=== PATIENT | female | born 1970 | race Hispanic/Latino ===

== ENCOUNTER 2018-08-14 23:32 | Inpatient (IN) | payer OTHER ==
[2018-08-15] MEDS ORDERED: ACETAMINOPHEN 500 MG TAB PO PRN (00:09)
[2018-08-15 04:53] LABS: Urine Appearance CLEAR; Urine Bilirubin NEGATIVE (NEG); Urine Blood NEGATIVE (NEG); Urine Color YELLOW; Urine Glucose TRACE (NEG); Urine Protein 3+ (NEG); Urine Urobilinogen 0.2 mg/dL (0.2-1.0); Urine pH 6.5 (5.0-7.0)
[2018-08-15 05:05] LABS: Urine Microscopic Reflex ORDER UMIC
[2018-08-15 05:13] LABS: Urine Bacteria <20 /HPF (<20); Urine Culture Reflex Order NOT NEEDED; Urine RBC <5 /HPF (NONE SEEN)
[2018-08-15 06:28] LABS: Absolute Lymphocytes (CBC) 1.1 K/uL (0.7-4.9); Absolute Monocytes 0.5 K/uL (0.1-1.3); Absolute Neutrophil 7.4 K/uL (1.8-8.0); Basophils % 0.8 % (0-1.3); Hematocrit 24.2 % (36.0-45.0); Lymphocytes % 11.7 % (15.3-44.8); MCV 81.4 fL (80-100); MPV 8.8 fL (7.6-11.3); Monocytes % 5.5 % (3.3-12.3); RBC Red Blood Cell Count 2.97 M/uL (3.86-4.86)
[2018-08-15 06:42] LABS: Albumin 1.3 g/dL (3.4-5.0); Bilirubin Total 0.2 mg/dL (0.2-1.0); Phosphorus 5.9 mg/dL (2.5-4.9); Potassium 3.2 mmol/L (3.5-5.1); Protein, Total 5.1 g/dL (6.4-8.2)
[2018-08-15 06:49] LABS: Protime INR 1.08
[2018-08-15] MEDS ORDERED: INFLUENZA VACCINE (for 3y+) 0.5 ML DOSE IMVAC ONE (07:00)
[2018-08-15] MEDS ORDERED: PNEUMOCOCCAL VACCINE 0.5 ML IMVAC ONE (07:00)
[2018-08-15] MEDS: KCL 20 MEQ/100 mL IVPB 20 MEQ/100 ML BAG IV SCH ×2 (07:28→09:40)
[2018-08-15] MEDS ORDERED: NA CHLORIDE 0.9% 250 ML ONE (07:36)
--- NOTE | 2018-08-15 08:51 | P.HP ---
Certification for Inpatient Patient admitted to: Inpatient With expected LOS: >2 Midnights Patient will require the following post-hospital care: None Practitioner: I am a practitioner with admitting privileges, knowledge of patient current condition, hospital course, and medical plan of care. Services: Services provided to patient in accordance with Admission requirements found in Title 42 Section 412.3 of the Code of Federal Regulations Patient History Date of Service: 08/14/18 Reason for admission: Acute renal failure History of Present Illness: Patient is a 48-year-old female who came into the hospital with a transfer from [place]. Patient is requiring hemodialysis access catheter. Patient needs dialysis as well. Patient will be admitted to the hospital for intervention. History was obtained from patient's daughter who was at her bedside. Patient has a history of diabetes and hypertension. Her renal function has been deteriorating. She has been fatigued and anorexic over the last month. She was admitted to the hospital because of her renal failure. She required intervention however [facility] did not have staff so she was transferred to our facility. Patient will be admitted to our hospital for further workup. Allergies No Known Allergies Allergy (Unverified 08/14/18 23:51) Home Medications: NK [No Home Meds] 08/14/18 - Past Medical/Surgical History Has patient received pneumonia vaccine in the past: No Diabetic: Yes -: Type 2 DM -: Anemia -: HTN -: Hyperlipidemia -: CS -: Tubal Ligation - Family History Sister Medical History: Diabetes, Kidney disease Brother Medical History: Diabetes - Social History Smoking Status: Never smoker Alcohol use: No CD- Drugs: No Caffeine use: Yes Place of Residence: Home Review of Systems 10-point ROS is otherwise unremarkable Physical Examination - Vital Signs Temperature: 97.1 F Blood Pressure: 169/77 Pulse: 86 Respirations: 18 Pulse Ox (%): 96 - Physical Exam General: Alert, In no apparent distress, Oriented x3 HEENT: Atraumatic, PERRLA, Mucous membr. moist/pink, EOMI, Sclerae nonicteric Neck: Supple, 2+ carotid pulse no bruit, No LAD, Without JVD or thyroid abnormality Respiratory: Clear to auscultation bilaterally, Normal air movement Cardiovascular: Regular rate/rhythm, Normal S1 S2, No murmurs Gastrointestinal: Normal bowel sounds, Soft and benign, Non-distended, No tenderness Musculoskeletal: No clubbing, No swelling, No tenderness Integumentary: No rashes Neurological: Normal gait, Normal speech, Normal strength at 5/5 x4 extr, Normal tone, Normal affect Lymphatics: No axilla or inguinal lymphadenopathy - Studies Laboratory Data (last 24 hrs) 08/15/18 05:40: Sodium 146 H, Potassium 3.2 L, BUN 35 H, Creatinine 4.20 H, Glucose 98, Phosphorus 5.9 H, Magnesium 2.0, Total Bilirubin 0.2, AST 10 L, ALT 12, Alkaline Phosphatase 95 08/15/18 05:40: PT 12.8 H, INR 1.08, APTT 33.2 08/15/18 05:40: WBC 9.5, Hgb 8.3 L, Hct 24.2 L, Plt Count 292 Assessment & Plan - Problems (Diagnosis) (1) End stage renal disease Current Visit: Yes Status: Acute (2) History of hypertension Current Visit: Yes Status: Acute (3) History of diabetes mellitus, type II Current Visit: Yes Status: Acute (4) Metabolic acidosis Current Visit: Yes Status: Acute (5) Hypocalcemia Current Visit: Yes Status: Acute - Plan Plan: 1. Surgical consultation 2. Nephrology consultation 3. Corrected calcium for hypoalbuminemia is 8.6 so do not need to give IV calcium at this time. We should check ionized calcium level. 4. Strict BP and BS control 5. Monitor labs and electrolytes closely 6. NPO after midnight 7. GI and DVT prophylaxis Discharge Plan: Home Plan to discharge in: Greater than 2 days - Advance Directives Does patient have a Living Will: No Does patient have a Durable POA for Healthcare: No - Code Status/Comfort Care Code Status Assessed: Yes Code Status: Full Code Critical Care: No Time Spent Managing PTS Care (In Minutes): 50
[2018-08-15] MEDS ORDERED: ENOXAPARIN 30 MG/0.3 ML SQ SCH (09:00)
[2018-08-15] MEDS ORDERED: NS 0.9% VIAL 20 ML ONE (10:48)
[2018-08-15] MEDS ORDERED: NA CHLORIDE 0.9% 500 ML ONE (11:02)
[2018-08-15] MEDS ORDERED: MIDAZOLAM HCL 2 MG/2 ML INJ ONE (11:33)
[2018-08-15] MEDS ORDERED: PROPOFOL 200 MG/20 ML VIAL IV ONE (11:33)
[2018-08-15] MEDS ORDERED: FENTANYL CITR 100 MCG/2 ML ONE (11:33)
[2018-08-15] MEDS ORDERED: LIDOCAINE 1% MPF 5 ML VIAL ONE (11:33)
[2018-08-15] MEDS: CEFAZOLIN/SWI 1gm 1 GM/10 ML SYR ONE ×2 (11:57→12:04)
[2018-08-15] MEDS: BUPIVACA 0.25%/EPI 0.0005% MDV 50 ML VIAL ONE ×2 (12:20→12:41)
[2018-08-15] MEDS: HEPARIN 5000 UNIT/ML 1 ML VIAL ONE ×2 (12:28→12:50)
[2018-08-15] MEDS ORDERED: EPHEDRINE SULF 50 MG/10 ML SYR ONE (12:35)
[2018-08-15] MEDS ORDERED: NS 0.9% VIAL 10 ML ONE (12:57)
--- NOTE | 2018-08-15 12:57 | P.OP ---
Associate Professor Of Communication: LUIZA ANN Preoperative diagnosis: End Stage Renal Disease Postoperative diagnosis: End Stage Renal Disease Primary procedure: Placement of LEFT internal jugular tunnelled hemodialysis catheter Secondary procedure: ultrasound and flouroscopic guidance used Anesthesia: GETA + Local Estimated blood loss: <10cc Specimen: None Findings: Dark, Non red non-pulsatile blood returned Complications: None Transferred to: Recovery Room Condition: Good
--- NOTE | 2018-08-15 13:42 | RAD REPORT ---
EXAM DESCRIPTION: RAD - Fluoroscopy <1 Hour - 08/15/2018 1:34 pm CLINICAL HISTORY: Venous catheter insertion. CATHETER PLACEMENT IN OR4 COMPARISON: No comparisons FINDINGS: Fluoroscopic imaging is submitted from placement of a venous catheter. Details of the pro cedure not available. Fluoroscopy time: 0.7 minutes.
--- NOTE | 2018-08-15 13:43 | RAD REPORT ---
EXAM DESCRIPTION: RAD - Chest Single View - 08/15/2018 1:30 pm CLINICAL HISTORY: CATHETER PLACEMENT Chest pain. COMPARISON: No comparisons FINDINGS: Portable technique limits examination quality. Mild linear atelectasis is present in the right lung base. The lungs are otherwise clear. Left-sided venous catheter has tip in the SVC. No postprocedure pneumothorax. Cardiac size is normal.
--- NOTE | 2018-08-15 15:22 | CON ---
Date of Consultation: 08/15/2018 Brief History Of Present Illness: The patient is a 48-year-old female, who presents to [facility] from [facility]. She went to [place] at that time with shortness of breath and cough an d was noted to have worsening renal function. She was therefore told that she would likely need to b e placed on dialysis and have initiation of dialysis as she has had continued dysfunction of her kidn eys to a point where she is requiring dialysis. As such, she was transferred to this facility from [place]. She states she feels much better now with no shortness of breath and no other symptoms at t his point, and her cough is improving significantly, and she has had no coughing in the past few hour s. Past Medical History: Hypertension, diabetes, anemia, hyperlipidemia. Past Surgical History: Includes , tubal ligation, bilateral breast abscess drainages. Allergies: NO KNOWN DRUG ALLERGIES. Medications: None as patient is noncompliant with medical therapy. Family History: She has a sister with diabetes and kidney disease as well and a brother with diabete s. Social History: She denies smoking, alcohol, or recreational drug use. Review of Systems: A 10-point review of systems other than HPI, denies. Physical Examination: Vital Signs: She has a BMI of 25.9, blood pressure 169/77, pulse 86, respiratory rate 18, temperatur e 97.1. General: She is awake, alert, oriented. Psychiatric: She is appropriate and conversive. HEENT: She is normocephalic. Sclerae anicteric. Mucous membranes are moist. Oropharynx clear. Sh e has very poor dentition. Neck: Supple. No JVD. Chest: Normal expansion and excursion. Cardiovascular: Regular rate and rhythm. Pulmonary: Clear to auscultation bilaterally. Abdomen: Soft. Extremities: She has edema in all 4 extremities, which is 1 to 2+ pitting edema. Laboratory Data: Reveals a white blood cell count of 9.5, hemoglobin 8.3, hematocrit 24.2, platelet count is 292, neutrophils are 78%. Her PT is 12.8, INR 1.08, PTT 33.2. Her sodium 146, potassium 3. 2, chloride 115, carbon dioxide 18, BUN 35, creatinine 4.2, glucose is 98, calcium 6.5, phosphorus 5. 9, magnesium 2.0, total bilirubin 0.2. AST is 10, ALT is 12, alkaline phosphatase is 95. UA is esse ntially negative except for 3+ protein. Assessment And Plan: This is a 48-year-old female, who comes in with signs and symptoms of acute on chronic renal failure. 1.IV fluid to be judiciously managed. 2.Electrolyte correction. 3.I explained risks, benefits, and alternatives of placement of a tunneled hemodialysis catheter inc luding, but not limited to bleeding, infection, damage to surrounding tissue, need for further operat ing procedures, injury to lung, pneumothorax, need for chest tube in cases of pneumothorax can be pos sible. The patient agrees to proceed as indicated. Thank you for this interesting consult. LARA/MORENA Voice ID: [id number] Report ID: [id number]
--- NOTE | 2018-08-15 15:46 | P.PN ---
Subjective Date of Service: 08/15/18 Chief Complaint: Acute renal failure Patient seen and examined at bedside with RN. Chart reviewed. Case discussed we Nephrology and general surgery. Patient scheduled for HD tunneled cath Review of Systems 10-point ROS is otherwise unremarkable Physical Examination - Vital Signs Temperature: 97.8 F Blood Pressure: 159/72 Pulse: 100 Respirations: 22 Pulse Ox (%): 93 - Physical Exam General: Alert, In no apparent distress HEENT: Atraumatic, PERRLA, EOMI Neck: Supple, JVD not distended Respiratory: Clear to auscultation bilaterally, Normal air movement Cardiovascular: Regular rate/rhythm, Normal S1 S2 Gastrointestinal: Normal bowel sounds, No tenderness Musculoskeletal: No tenderness Integumentary: No rashes Neurological: Normal speech, Normal tone, Normal affect Lymphatics: No axilla or inguinal lymphadenopathy - Studies Laboratory Data (last 24 hrs) 08/15/18 05:40: Sodium 146 H, Potassium 3.2 L, BUN 35 H, Creatinine 4.20 H, Glucose 98, Phosphorus 5.9 H, Magnesium 2.0, Total Bilirubin 0.2, AST 10 L, ALT 12, Alkaline Phosphatase 95 08/15/18 05:40: PT 12.8 H, INR 1.08, APTT 33.2 08/15/18 05:40: WBC 9.5, Hgb 8.3 L, Hct 24.2 L, Plt Count 292 Medications List Reviewed: Yes Assessment And Plan - Current Problems (Diagnosis) (1) End stage renal disease Onset Date: 08/15/18 Current Visit: Yes Status: Acute Plan: Acute renal failure on chronic kidney disease -patient recently transferred from another hospital over here to get a HD catheter placement -nephrology has been consulted. Will start dialysis once HD catheterization has been done -will follow up with nephrology for further recommendations after general surgery has done the procedure today (2) History of diabetes mellitus, type II Current Visit: Yes Status: Chronic Plan: Currently on insulin sliding scale will continue to monitor closely (3) History of hypertension Current Visit: Yes Status: Chronic Plan: Continue with home medication at this time Discharge Plan: Home Plan to discharge in: Greater than 2 days - Code Status/Comfort Care Code Status Assessed: Yes Critical Care: No
[2018-08-15] MEDS: ONDANSETRON 4 MG/2 ML VIAL IV PRN ×2 (16:18→22:17)
[2018-08-15] MEDS: HYDROMORPHONE HCL 1 MG/ML INJ IV PRN (16:18)
[2018-08-15] MEDS ORDERED: NA CHLORIDE 0.9% 1,000 ML IV PRN (17:36)
[2018-08-15] MEDS ORDERED: ALBUMIN HUMAN 25% 50 ML IV SCH (18:00)
[2018-08-15] MEDS: CALCITROL 0.25 MCG CAP PO SCH (22:17)
[2018-08-15] MEDS ORDERED: POTASSIUM CL SA 10 MEQ TAB PO ONE (22:57)
--- NOTE | 2018-08-16 01:05 | OP ---
Date of Procedure: 08/14/2018 Surgeon: León Bridges MD, Clip Riveter: Vicky Durand. Preoperative Diagnosis: End-stage renal disease. Postoperative Diagnosis: End-stage renal disease. Procedure Performed: Placement of a left internal jugular tunneled hemodialysis catheter using ultra sound and fluoroscopic guidance. Anesthesia: General endotracheal plus local with 0.25% Marcaine. Estimated Blood Loss: Less than 10 cc. Specimen: None. Findings: 1.Somewhat difficult anatomy and difficulty passing the microwire without significant turning of the wire into the subclavian vein as well as to the contralateral carotid, but ultimately I was able to traverse this and pass the wire into the normal anatomic position. 2.Dark red non-pulsatile blood after cannulation was confirmed on ultrasound guidance. Complications: None. Disposition: Transferred to recovery room in good condition. Implants: A 24 cm tunneled hemodialysis catheter. Procedure In Detail: After informed consent was obtained, the patient brought to the operating room, prepped and draped in the usual sterile fashion. After adequate anesthesia was achieved, the patien t was placed in steep Trendelenburg position. Using ultrasound guidance, I used a micro introducer a nd cannulated the internal jugular vein on the first attempt. However, the wire had difficulty passi ng and as such, I repositioned the wire and on the second attempt, I was able to successfully cannula te the internal jugular vein with a microwire. The microwire was then advanced. Fluoroscopy confirm ed position, however, there was some difficulty traversing the wire to the SVC. However, I was able to do this successfully after placing the introducer sheath. When the introducer sheath was passed, the wire was easily advanced to the normal anatomic position and then at this point the microwire was removed, the inner cannula was removed, and the standard guidewire was then placed through into the normal anatomic position. Once again, there was some difficulty, but I was able to advance the wire into the SVC confluence at this time. At this point, the introducer sheath was removed. Additional site was chosen on the chest wall. This was anesthetized appropriately and the entire tract was anes thetized to the insertion site over the clavicle. I then made an incision on the chest wall and used a tunneling device to advance the catheter into this position. This was a 24 cm curved hemodialysis catheter with cuff. The cuff was placed into the midportion of the clavicle. At this point, I did sequential dilatation under fluoroscopy to ensure maintenance of the wire in the normal anatomic posi tion. After sequential dilatation was performed, the introducer sheath was advanced and the wire out was called at this time and the catheter was then introduced into the introducer sheath without evid ence of complication. The catheter was found to be in the confluence of the SVC at this time and thi s was confirmed on fluoroscopy. I then cleansed the area and flushed the catheter. It was easy to b oth withdraw and flush dark red nonpulsatile blood into both ports, and both ports were flushed thoro ughly with saline, and then packed with heparinized saline 3000 units per port. I then irrigated the skin incisions and closed them with 2-0 nylon in an interrupted fashion and secured the catheter to the chest wall. Sterile dressing was placed over top. The patient was then removed from the Trendel enburg position. The patient tolerated the procedure well without evidence of complication and trans ferred to the PACU in good condition. All counts were correct at the end of the case. The patient w ill have a stat chest x-ray to confirm position in the PACU. LARA/MORENA Voice ID: [id number] Report ID: [id number]
[2018-08-16 05:42] LABS: RBC Red Blood Cell Count 2.98 M/uL (3.86-4.86)
[2018-08-16] MEDS: ONDANSETRON 4 MG/2 ML VIAL IV PRN ×2 (06:20→21:30)
[2018-08-16 07:04] LABS: Albumin 1.3 g/dL (3.4-5.0); Ferritin 64.4 ng/mL (8-388); Folic Acid, (Folate) 6.1 ng/mL (3.1-17.5); Phosphorus 7.2 mg/dL (2.5-4.9); Potassium 3.9 mmol/L (3.5-5.1)
[2018-08-16] MEDS: CALCIUM CARBONATE CHEW 500MG TAB PO SCH ×3 (07:30→17:50)
[2018-08-16] MEDS: LISINOPRIL 10 MG TAB PO SCH (09:00)
[2018-08-16] MEDS ORDERED: POTASSIUM CL SA 10 MEQ TAB PO ONE (09:00)
[2018-08-16] MEDS ORDERED: PNEUMOCOCCAL VACCINE 0.5 ML IMVAC ONE (11:00)
[2018-08-16] MEDS ORDERED: INFLUENZA VACCINE (for 3y+) 0.5 ML DOSE IMVAC ONE (11:00)
[2018-08-16] MEDS: HEPARIN 5000 UNIT/ML 1 ML VIAL SQ SCH ×2 (11:15→20:59)
--- NOTE | 2018-08-16 13:16 | P.PN ---
Subjective Date of Service: 08/16/18 Chief Complaint: Acute renal failure Patient seen and examined at bedside with RN. Chart reviewed. Case discussed we Nephrology and general surgery. Status post HD tunnel catheter placement. Doing well overall. Scheduled for dialysis today Review of Systems 10-point ROS is otherwise unremarkable Physical Examination - Vital Signs Temperature: 99.5 F Blood Pressure: 164/71 Pulse: 104 Respirations: 20 Pulse Ox (%): 97 - Physical Exam General: Alert, In no apparent distress HEENT: Atraumatic, PERRLA, EOMI Neck: Supple, JVD not distended Respiratory: Clear to auscultation bilaterally, Normal air movement Cardiovascular: Regular rate/rhythm, Normal S1 S2 Gastrointestinal: Normal bowel sounds, No tenderness Musculoskeletal: No tenderness Integumentary: No rashes Neurological: Normal speech, Normal tone, Normal affect Lymphatics: No axilla or inguinal lymphadenopathy - Studies Laboratory Data (last 24 hrs) 08/16/18 05:11: Sodium 143, Potassium 3.9, BUN 32 H, Creatinine 4.20 H, Glucose 120 H, Phosphorus 7.2 H 08/15/18 22:15: Potassium 3.8 Medications List Reviewed: Yes Assessment And Plan - Current Problems (Diagnosis) (1) End stage renal disease Onset Date: 08/15/18 Current Visit: Yes Status: Acute Plan: Acute renal failure on chronic kidney disease -status post HD catheter placement today -schedule for hemodialysis today -followup post dialysis at this time. -nephrology consulted appreciated recommendations (2) History of diabetes mellitus, type II Current Visit: Yes Status: Chronic Plan: Currently on insulin sliding scale will continue to monitor closely (3) History of hypertension Current Visit: Yes Status: Chronic Plan: Continue with home medication at this time Discharge Plan: Home Plan to discharge in: 48 Hours - Code Status/Comfort Care Code Status Assessed: Yes Critical Care: No
[2018-08-16] MEDS ORDERED: ALTEPLASE 2 MG/VIAL IV ONE (15:15)
[2018-08-16] MEDS ORDERED: WATER FOR INJ,STERILE 10 ML IV ONE (15:15)
[2018-08-16] MEDS: EPOETIN ALFA 10,000 UNIT/ML VIAL IV SCH (16:57)
[2018-08-16] MEDS: HYDROCODONE/APAP 7.5/325 MG TAB PO PRN (17:50)
[2018-08-16] MEDS ORDERED: METOPROLOL TAR 25 MG TAB PO ONE (20:21)
--- NOTE | 2018-08-16 20:22 | P.PN ---
Subjective Date of Service: 08/16/18 Chief Complaint: Acute renal failure Subjective: No new changes Pt with DM and progressive CKD, TRANSFFRED FORM Ian as she required to initiate HD no new complaints AIDE: will start IV iron HD today Cath malfunction will try alteplase and check tomorrow , otherwise will require repositioning/replacement will check if pt is eligible for Home HD Physical Examination - Vital Signs Temperature: 98.8 F Blood Pressure: 180/75 Pulse: 97 Respirations: 20 Pulse Ox (%): 97 - Physical Exam General: Oriented x3 HEENT: Atraumatic Respiratory: Crackles/rales Cardiovascular: Normal pulses, Regular rate/rhythm, Normal S1 S2, No rubs, No murmurs, Edema Gastrointestinal: Normal bowel sounds - Studies Laboratory Data (last 24 hrs) 08/16/18 05:11: Sodium 143, Potassium 3.9, BUN 32 H, Creatinine 4.20 H, Glucose 120 H, Phosphorus 7.2 H 08/15/18 22:15: Potassium 3.8 Medications List Reviewed: Yes Assessment And Plan - Current Problems (Diagnosis) (1) End stage renal disease Onset Date: 08/15/18 Current Visit: Yes Status: Acute (2) Metabolic acidosis Onset Date: 08/15/18 Current Visit: Yes Status: Acute (3) History of diabetes mellitus, type II Current Visit: Yes Status: Chronic (4) History of hypertension Current Visit: Yes Status: Chronic - Plan 48 yo with PMH of DM for 15 yrs no retinopathy or neuropathy , HTN and HLD Pt admitted for persistent cough of 1wk duration Pt had normal RFT in 2016 , in November Cr was 1.9 In [facility] cr 4.6, no nsaid or contrast Pt transferred to initiate HD Assessment and plan ESRD Likely due to DM Nephrotic range protienuria HIV and RPR -ve US: no hydro Will cont HD F/U ROBB, ANCA, C3,C4 and hep pane;l PNA On rocephin and azitromycin Anemia IFEOMA IV iron and folate DM: BS control HTN cont meds Will add metoprolol for better control
[2018-08-16] MEDS: FUROSEMIDE 40 MG/4 ML VIAL IV SCH (20:58)
[2018-08-16] MEDS: CALCITROL 0.25 MCG CAP PO SCH (20:58)
[2018-08-16] MEDS: HYDROMORPHONE HCL 1 MG/ML INJ IV PRN (21:01)
[2018-08-17 05:26] LABS: Albumin 1.4 g/dL (3.4-5.0); Phosphorus 6.6 mg/dL (2.5-4.9); Potassium 3.7 mmol/L (3.5-5.1)
[2018-08-17] MEDS: METOPROLOL TAR 25 MG TAB PO SCH ×3 (05:55→17:14)
[2018-08-17] MEDS: CA ACETATE 667 MG CAP PO SCH ×3 (08:00→17:15)
[2018-08-17] MEDS: LISINOPRIL 10 MG TAB PO SCH (09:00)
[2018-08-17] MEDS: FOLIC ACID 1 MG TABLET PO SCH ×2 (09:00→12:57)
[2018-08-17] MEDS ORDERED: POTASSIUM CL SA 10 MEQ TAB PO ONE (09:00)
[2018-08-17] MEDS: FUROSEMIDE 40 MG/4 ML VIAL IV SCH ×2 (09:33→21:10)
[2018-08-17] MEDS: LISINOPRIL 20 MG TAB PO SCH ×2 (10:00→12:57)
[2018-08-17] MEDS: HEPARIN 5000 UNIT/ML 1 ML VIAL SQ SCH ×2 (10:14→21:10)
[2018-08-17] MEDS: SOD FERRIC GLUC COMPLX/SUCROSE 125 MG in NA CHLORIDE 0.9% 100 ML IV SCH (10:18)
[2018-08-17] MEDS: HYDROMORPHONE HCL 1 MG/ML INJ IV PRN (10:32)
--- NOTE | 2018-08-17 11:30 | P.PN ---
Subjective Date of Service: 08/17/18 Chief Complaint: Acute renal failure Pt with DM and progressive CKD, TRANSFFRED FORM [facility] as she required to initiate HD no new complaints high BP: will add metoprolol AIDE: will start IV iron HD tomorrow Cath malfunction, failed alteplase , cath need to be changed Physical Examination - Vital Signs Temperature: 98.9 F Blood Pressure: 160/88 Pulse: 90 Respirations: 16 Pulse Ox (%): 96 - Physical Exam General: Oriented x3 Neck: Supple, Without JVD or thyroid abnormality Respiratory: Crackles/rales Cardiovascular: Regular rate/rhythm, Normal S1 S2, No rubs, Edema Gastrointestinal: Normal bowel sounds - Studies Laboratory Data (last 24 hrs) 08/17/18 04:17: Sodium 142, Potassium 3.7, BUN 29 H, Creatinine 4.40 H, Glucose 136 H, Phosphorus 6.6 H Medications List Reviewed: Yes Assessment And Plan - Current Problems (Diagnosis) (1) End stage renal disease Onset Date: 08/15/18 Current Visit: Yes Status: Acute (2) Metabolic acidosis Onset Date: 08/15/18 Current Visit: Yes Status: Acute (3) History of diabetes mellitus, type II Current Visit: Yes Status: Chronic (4) History of hypertension Current Visit: Yes Status: Chronic - Plan 48 yo with PMH of DM for 15 yrs no retinopathy or neuropathy , HTN and HLD Pt admitted for persistent cough of 1wk duration Pt had normal RFT in 2015 , in November Cr was 1.9 In [facility] cr 4.6, no nsaid or contrast Pt transferred to initiate HD Assessment and plan ESRD Likely due to DM Nephrotic range protienuria HIV and RPR -ve US: no hydro Will cont HD F/U ROBB, ANCA, C3,C4 and hep panel will try to arrange for Home HD PNA On rocephin and azitromycin Anemia IFEOMA IV iron and folate DM: BS control HTN cont meds metoprolol added will cont to monitor
[2018-08-17] MEDS ORDERED: CALCIUM GLUC 10% INJ 4.65 MEQ in NA CHLORIDE 0.9% 100 ML IV ONE (12:00)
[2018-08-17] MEDS ORDERED: LIDOCAINE 1% MPF 5 ML VIAL ONE (12:19)
[2018-08-17] MEDS ORDERED: HEPARIN 5000 UNIT/ML 1 ML VIAL ONE (12:37)
[2018-08-17] MEDS ORDERED: NS 0.9% VIAL 10 ML ONE (12:39)
--- NOTE | 2018-08-17 12:39 | P.OP ---
Preoperative diagnosis: Need for Hemodialysis Postoperative diagnosis: Need for Hemodialysis Primary procedure: Placement of RIGHT Femoral temporary hemodialysis catheter Secondary procedure: ultrasound used, microintroducer used Anesthesia: Local 1% lidocaine Estimated blood loss: <5cc Specimen: none Findings: Dark, Non red non-pulsatile blood returned Complications: None Implants: Tunnelled 20cm 12 Fr Hemodialysis Catheter Transferred to: Other (Remained in Room) Condition: Good
--- NOTE | 2018-08-17 13:03 | OP ---
Date of Procedure: 08/17/2018 Surgeon: León Bridges MD, Preoperative Diagnoses: Need for hemodialysis access, dysfunction of previously placed hemodialysis catheter. Postoperative Diagnoses: Need for hemodialysis access, dysfunction of previously placed hemodialysis catheter. Procedure Performed: Placement of a right femoral temporary hemodialysis catheter. Ultrasound terese nce and microintroducer set was used. Anesthesia: Lidocaine 1% was used for local anesthesia. Estimated Blood Loss: Less than 5 mL. Specimen: None. Findings: Dark red nonpulsatile blood was returned. Complications: None. Implant: Tunneled 20-cm 12-Spanish hemodialysis catheter. Disposition: The patient remained in room in good condition throughout the procedure. Procedure In Detail: Informed consent was obtained, the patient was prepped and draped in the usual sterile fashion. After adequate anesthesia was achieved, the area of the right groin was visualized with the ultrasound machine. Using a microintroducer set, the femoral vein was cannulated on the fir st attempt. The microwire was advanced easily. The introducer needle was removed at this time. I marjorie lorenzo made a small jonn incision over the introduction site and placed the micro-introducer sheath in p lace and pulled, removed the microwire. I then advanced standard wire easily without evidence for co mplication. Using Seldinger technique. I then removed the introducer sheath and performed sequentia l dilatation of the femoral vein. The catheter was then introduced using Seldinger technique and a w jorge alberto out was called once again, and dark red nonpulsatile blood was returned, and this was the only ch aracteristic of blood returned throughout the entire procedure. I then tested the catheter and withd rew blood very quickly and rapidly and easily and flushed quite rapidly and easily as well and only d ark red nonpulsatile blood was returned. Once again, the catheter was then flushed, until completely clear with saline and packed with heparin super flush, 2 mL per port. I then secured the catheter to the skin using the attached 2-0 nylon suture without evidence of complication. A sterile dressing w as placed over top. The patient tolerated the procedure well without evidence of complication, remai alessia in room throughout the procedure in good condition. All counts were correct at the end of case. LARA/MORENA Voice ID: [id number] Report ID: [id number]
--- NOTE | 2018-08-17 14:15 | RAD REPORT ---
EXAM DESCRIPTION: RAD - Chest Single View - 08/17/2018 2:07 pm CLINICAL HISTORY: Chest pain COMPARISON: August 15 TECHNIQUE: AP portable chest image was obtained 1352 hours . FINDINGS: Minimal stranding in each lung base has improved. No progressive lung parenchymal process. Heart size is normal and decreased slightly. Vasculature has also decreased in prominence. Double-conner men catheter remains in place. No measurable pleural effusion and no pneumothorax. No acute bony abno rmality seen. No acute aortic findings suspected. IMPRESSION: Heart size has decreased slightly. Lung parenchymal opacification also improved.
[2018-08-17] MEDS: ONDANSETRON 4 MG/2 ML VIAL IV PRN (14:21)
--- NOTE | 2018-08-17 14:39 | CON ---
History Of Present Illness: Mrs. Chauhan has been having chest pain, started shortly after getting a dialysis catheter placed and when she was up getting clean a lot. She describes the pain is point te nderness in various spots across the upper part of her chest. It does not seem to be dyspnea or tigh tness or pressure. The EKG does not seem to change when she has the pain. She has undergone a surge ry to put a temporary dialysis catheter recently. She has never had myocardial infarction or stroke. She has underlying diabetes and new onset renal failure. Creatinine about 4. Lot of symptoms of u remia. She uses no tobacco, no alcohol, or illegal drugs. Physical Examination: General: She is uncomfortable because of retching. Apparently, she received some hydromorphone rece ntly, now is retching. Lungs: Clear. Heart: Within normal limits. No friction rub. Abdomen: Soft. Extremities: Normal. Impression: I think we can do a stress test at some point, hopefully when she is not also sick to he r stomach and retching and when she has most of the symptoms of uremia under control after a few spel ls of dialysis or sessions of dialysis. Thank you very much for your kind referral of Mrs. Chauhan. I will follow her with you. TERRELL/MORENA Voice ID: [id number] Report ID: [id number]
--- NOTE | 2018-08-17 15:21 | P.PN ---
Subjective Date of Service: 08/17/18 Chief Complaint: Acute renal failure Patient seen and examined at bedside with RN. Chart reviewed. Case discussed we Nephrology and general surgery. Status post HD tunnel catheter placement. HD catheter appear to be clogged yesterday. Patient unable to give hemodialysis yesterday. Is scheduled for a temporary catheter placement this morning. Review of Systems 10-point ROS is otherwise unremarkable Physical Examination - Vital Signs Temperature: 98.6 F Blood Pressure: 174/79 Pulse: 84 Respirations: 16 Pulse Ox (%): 96 - Physical Exam General: Alert, In no apparent distress HEENT: Atraumatic, PERRLA, EOMI Neck: Supple, JVD not distended Respiratory: Clear to auscultation bilaterally, Normal air movement Cardiovascular: Regular rate/rhythm, Normal S1 S2 Gastrointestinal: Normal bowel sounds, No tenderness Musculoskeletal: No tenderness Integumentary: No rashes Neurological: Normal speech, Normal tone, Normal affect Lymphatics: No axilla or inguinal lymphadenopathy - Studies Laboratory Data (last 24 hrs) 08/17/18 12:42: Troponin I 0.04 08/17/18 04:17: Sodium 142, Potassium 3.7, BUN 29 H, Creatinine 4.40 H, Glucose 136 H, Phosphorus 6.6 H Medications List Reviewed: Yes Assessment And Plan - Current Problems (Diagnosis) (1) End stage renal disease Onset Date: 08/15/18 Current Visit: Yes Status: Acute Plan: Acute renal failure on chronic kidney disease -status post HD catheter placement, however patient received 1 round of dialysis and then on day 2 his hemodialysis catheter was obstructed cath flow was used without any success. Patient scheduled for a temporary dialysis catheter placement -will receive hemodialysis with temporary dialysis catheter -nephrology consulted appreciated recommendations (2) History of diabetes mellitus, type II Current Visit: Yes Status: Chronic Plan: Currently on insulin sliding scale will continue to monitor closely (3) History of hypertension Current Visit: Yes Status: Chronic Plan: Continue with home medication at this time - Plan Currently pending clinical improvement at this time. Patient is to get temporary dialysis catheter placed today. Patient also needs to get her outpatient hemodialysis at a before discharge to be made. Patient also complained of having some chest pain while she was going down to revisit her permanent HD catheter. Cardiology is consulted who recommended that patient can get her stress test done as outpatient. No further workup needed. Once patient is able to be dialyzed and her permanent catheter is working again patient can then be discharged home once her HD has been set up. Discharge Plan: Home Plan to discharge in: Greater than 2 days - Code Status/Comfort Care Code Status Assessed: Yes Critical Care: No
[2018-08-17] MEDS: HYDROCODONE/APAP 7.5/325 MG TAB PO PRN (21:10)
[2018-08-18] MEDS ORDERED: FUROSEMIDE 40 MG/4 ML VIAL IV ONE (00:29)
[2018-08-18 03:08] LABS: Urine Appearance TURBID; Urine Blood 3+ (NEG); Urine Color RED; Urine Glucose TRACE (NEG); Urine Protein 3+ (NEG); Urine pH 5.5 (5.0-7.0)
[2018-08-18 03:16] LABS: Urine Bilirubin NEGATIVE (NEG)
[2018-08-18 03:25] LABS: Urine Culture Reflex Order REFLEXED
[2018-08-18 03:27] LABS: Urine Bacteria <20 /HPF (<20); Urine RBC TNTC /HPF (NONE SEEN)
[2018-08-18 06:00] LABS: Albumin 1.3 g/dL (3.4-5.0); Magnesium 2.1 mg/dL (1.8-2.4); Potassium 3.9 mmol/L (3.5-5.1)
[2018-08-18] MEDS: METOPROLOL TAR 25 MG TAB PO SCH ×2 (06:26→17:27)
[2018-08-18] MEDS: FUROSEMIDE 40 MG/4 ML VIAL IV SCH ×2 (08:36→22:35)
[2018-08-18] MEDS: FOLIC ACID 1 MG TABLET PO SCH (08:36)
[2018-08-18] MEDS: LISINOPRIL 20 MG TAB PO SCH (08:36)
[2018-08-18] MEDS: CA ACETATE 667 MG CAP PO SCH ×3 (08:36→16:45)
[2018-08-18] MEDS: HEPARIN 5000 UNIT/ML 1 ML VIAL SQ SCH ×2 (08:37→22:35)
[2018-08-18] MEDS: SOD FERRIC GLUC COMPLX/SUCROSE 125 MG in NA CHLORIDE 0.9% 100 ML IV SCH (09:57)
--- NOTE | 2018-08-18 10:40 | CON ---
Date of Consultation: 08/15/2018 Additional Consulting Physician: Dr. Haas. Reason For Consultation: Elevated BUN, creatinine. History Of Present Illness: This is a 48-year-old female with significant past medical history of hy pertension, hyperlipidemia, diabetes, complicated with neuropathy and nephropathy, patient was admitt ed to [facility], found to have renal failure. The patient was anuric. For that reason, foster sferred to [facility] for placement of tunneled hemodialysis catheter and initiating dialysis. The p atient had some shortness of breath. No nausea. No vomiting. The patient know that she has a chron ic kidney disease and apparently was recommended to initiate dialysis, but the patient was reluctant to initiate dialysis because of the fear of losing job. The patient is status post PermCath placement. Past Medical History: Include: 1.Diabetes complicated with neuropathy and nephropathy. 2.Hypertension. 3.Hyperlipidemia. 4.Chronic kidney disease stage 5 with nephrotic range of proteinuria. 5.Hypertension. Past Surgical History: Include tubal ligation and . Allergies: NO KNOWN DRUGS ALLERGY. Family History: Positive for diabetes and hypertension. Social History: Lives with family. Denies smoking. Denies drinking. Denies drugs abuse. Review of Systems: Head and Neck: No red eye. No ear pain. GI: No nausea, no vomiting. : No polyuria, no dysuria, no hematuria. TRANSFUSION AIDE: No vaginal discharge. Respiratory: Has some shortness of breath. Cardiovascular: No chest pain. Endocrine: No polydipsia. Skin: No rash. Neuro: Has neuropathy. Musculoskeletal: No joint pain. Physical Examination: Vital Signs: Blood pressure 157/75, pulse of 99. Chest: Crackles faint in the base. Heart: S1, S2. Regular. Abdomen: Soft, nontender. Extremities: No edema. Neurologic: Alert. No focal. Laboratory Data: WBC 9.5, H and H 8.3/24.2. Sodium 146, potassium 3.2, bicarb 18, BUN 35, creatinin e 4.2, GFR of 11, calcium 6.5, phosphorus 5.9, magnesium of 2. Current Medications: In the hospital include: 1.Albumin. 2.Heparin. 3.Lovenox. 4.Hydromorphone. 5.Flu vaccine. Assessment And Plan: 1.End-stage renal disease. We will initiate the patient on dialysis after placement of tunneled cat heter. We will dialyze the patient today and tomorrow. 2.Hypertension. Given the diabetes, I am going to go ahead and start the patient on ABDON inhibitor a nd we will follow up. 3.Anemia of chronic kidney disease. We will send for anemia workup. We will start the patient on E pogen. 4.Secondary hyperparathyroidism. I am going to send for PTH. Start the patient on Tums. 5.Diabetes as by primary. Thank you Dr. Haas for allowing us to participate in the care of your patient. OSMAN/MORENA Voice ID: [id number] Report ID: [id number]
--- NOTE | 2018-08-18 14:22 | P.PN ---
Subjective Date of Service: 08/18/18 Chief Complaint: Acute renal failure Pt with DM and progressive CKD, TRANSFERRED FORM [facility] as she required to initiate HD yesterday complained of mild chest pain that resolved spontaneously tem rt femoral cath placed Plan for permanent cath placement on Monday Bp is better controlled , will cont to monitor for now AIDE: will start IV iron HD Monday then TTsat edema improving on lasix ca on low side , will increase Phoslo need labs tomorrow Physical Examination - Vital Signs Temperature: 98.3 F Blood Pressure: 164/66 Pulse: 73 Respirations: 18 Pulse Ox (%): 96 - Physical Exam General: Oriented x3 HEENT: Atraumatic Neck: Without JVD or thyroid abnormality Respiratory: Clear to auscultation bilaterally Cardiovascular: Regular rate/rhythm, Normal S1 S2, Edema - Studies Laboratory Data (last 24 hrs) 08/18/18 05:23: Sodium 140, Potassium 3.9, BUN 33 H, Creatinine 4.70 H, Glucose 102, Phosphorus 7.0 H, Magnesium 2.1 08/17/18 19:57: Troponin I 0.02 Medications List Reviewed: Yes Assessment And Plan - Current Problems (Diagnosis) (1) End stage renal disease Onset Date: 08/15/18 Current Visit: Yes Status: Acute (2) Metabolic acidosis Onset Date: 08/15/18 Current Visit: Yes Status: Acute (3) History of diabetes mellitus, type II Current Visit: Yes Status: Chronic (4) History of hypertension Current Visit: Yes Status: Chronic - Plan 48 yo with PMH of DM for 15 yrs no retinopathy or neuropathy , HTN and HLD Pt admitted for persistent cough of 1wk duration Pt had normal RFT in 2015 , in November Cr was 1.9 In [facility] cr 4.6, no nsaid or contrast Pt transferred to initiate HD Assessment and plan ESRD Likely due to DM Nephrotic range protienuria HIV and RPR -ve US: no hydro Will cont HD F/U ROBB, ANCA, C3,C4 and hep panel will try to arrange for Home HD Lt perm cath malfunction, now HD via lT femoral cath scheduled for perm cath pablo cement on Monday PNA On rocephin and azitromycin Anemia IFEOMA IV iron and folate DM: BS control HTN cont meds metoprolol added will cont to monitor
--- NOTE | 2018-08-18 15:18 | P.PN ---
Subjective Date of Service: 08/18/18 Chief Complaint: Acute renal failure Patient seen and examined at bedside with RN. Chart reviewed. Case discussed we Nephrology and general surgery. Status post HD tunnel catheter placement. HD catheter appear to be clogged however. Patient now with him for a tunnel catheter and the right femoral area. Plan for revision of her HD tunnel catheter on Monday Review of Systems 10-point ROS is otherwise unremarkable Physical Examination - Vital Signs Temperature: 98.3 F Blood Pressure: 164/66 Pulse: 73 Respirations: 18 Pulse Ox (%): 96 - Physical Exam General: Alert, In no apparent distress HEENT: Atraumatic, PERRLA, EOMI Neck: Supple, JVD not distended Respiratory: Clear to auscultation bilaterally, Normal air movement Cardiovascular: Regular rate/rhythm, Normal S1 S2 Gastrointestinal: Normal bowel sounds, No tenderness Musculoskeletal: No tenderness Integumentary: No rashes Neurological: Normal speech, Normal tone, Normal affect Lymphatics: No axilla or inguinal lymphadenopathy - Studies Laboratory Data (last 24 hrs) 08/18/18 05:23: Sodium 140, Potassium 3.9, BUN 33 H, Creatinine 4.70 H, Glucose 102, Phosphorus 7.0 H, Magnesium 2.1 08/17/18 19:57: Troponin I 0.02 Medications List Reviewed: Yes Assessment And Plan - Current Problems (Diagnosis) (1) End stage renal disease Onset Date: 08/15/18 Current Visit: Yes Status: Acute Plan: Acute renal failure on chronic kidney disease -status post HD catheter placement, however patient received 1 round of dialysis and then on day 2 her hemodialysis catheter was obstructed cath flow was used without any success. -patient now with a temporary catheter -will receive hemodialysis with temporary dialysis catheter -nephrology consulted appreciated recommendations -patient scheduled for revision over permanent catheter on Monday (2) History of diabetes mellitus, type II Current Visit: Yes Status: Chronic Plan: Currently on insulin sliding scale will continue to monitor closely (3) History of hypertension Current Visit: Yes Status: Chronic Plan: Continue with home medication at this time - Plan Currently pending clinical improvement at this time. Status post temporary hemodialysis catheter. Patient also needs to get her outpatient hemodialysis set up before discharge home. Once patient is able to be dialyzed and her permanent catheter is working again patient can then be discharged home once her HD has been set up. Discharge Plan: Home Plan to discharge in: 48 Hours - Code Status/Comfort Care Code Status Assessed: Yes Critical Care: No
[2018-08-19] MEDS: EPOETIN ALFA 10,000 UNIT/ML VIAL IV SCH (00:54)
[2018-08-19 03:36] LABS: HBsAG Nonreactive (Nonreactive)
--- NOTE | 2018-08-19 06:12 | EKG ---
Test Date: 2018-08-17 Test Time: 14:20:49 Data Entry Assistant: KAYDEN MEASUREMENT RESULTS: Intervals: Rate: 75 MT: 140 QRSD: 66 QT: 358 QTc: 399 [place]: P: 47 MT: 140 QRS: 26 T: -67 INTERPRETIVE STATEMENTS: Normal sinus rhythm Low voltage QRS Nonspecific T wave abnormality Abnormal ECG No previous ECG available for comparison Electronically Signed On 08-19-18 06:12:17 JOURNEYMAN PATTERNMAKER by Barry Olmedo
[2018-08-19] MEDS: METOPROLOL TAR 25 MG TAB PO SCH ×2 (06:28→17:25)
[2018-08-19 06:29] LABS: Absolute Lymphocytes (CBC) 1.2 K/uL (0.7-4.9); Absolute Monocytes 0.7 K/uL (0.1-1.3); Absolute Neutrophil 8.2 K/uL (1.8-8.0); Basophils % 0.5 % (0-1.3); Eosinophils % 1.5 % (0-4.4); Hematocrit 23.2 % (36.0-45.0); Lymphocytes % 11.5 % (15.3-44.8); MCH 28.5 pg (27.0-35.0); MCV 81.2 fL (80-100); MPV 9.1 fL (7.6-11.3); RBC Red Blood Cell Count 2.85 M/uL (3.86-4.86)
[2018-08-19 07:01] LABS: Albumin 1.3 g/dL (3.4-5.0); Phosphorus 3.6 mg/dL (2.5-4.9); Potassium 3.3 mmol/L (3.5-5.1)
[2018-08-19] MEDS: LISINOPRIL 20 MG TAB PO SCH (08:44)
[2018-08-19] MEDS: CA ACETATE 667 MG CAP PO SCH ×3 (08:44→17:00)
[2018-08-19] MEDS: FOLIC ACID 1 MG TABLET PO SCH (08:44)
[2018-08-19] MEDS: FUROSEMIDE 40 MG/4 ML VIAL IV SCH ×2 (08:45→21:51)
[2018-08-19] MEDS ORDERED: POTASSIUM 25 MEQ EFFERV TAB PO ONE (09:00)
[2018-08-19] MEDS: SOD FERRIC GLUC COMPLX/SUCROSE 125 MG in NA CHLORIDE 0.9% 100 ML IV SCH (10:19)
[2018-08-19] MEDS: HEPARIN 5000 UNIT/ML 1 ML VIAL SQ SCH ×2 (10:20→21:52)
--- NOTE | 2018-08-19 11:49 | P.PN ---
Subjective Date of Service: 08/19/18 Chief Complaint: Acute renal failure Pt with DM and progressive CKD, TRANSFERRED FORM [facility] as she required to initiate HD on Monday complained of mild chest pain that resolved spontaneously temp rt femoral cath placed Plan for permanent cath placement on tomorrow Bp is better controlled , as edema almost resolved AIDE: will start IV iron will cont HD MWF Corrected Ca ~9.0 Physical Examination - Vital Signs Temperature: 99.7 F Blood Pressure: 148/77 Pulse: 76 Respirations: 18 Pulse Ox (%): 96 - Physical Exam General: In no apparent distress, Oriented x3 HEENT: Atraumatic Neck: Supple Respiratory: Clear to auscultation bilaterally Cardiovascular: Regular rate/rhythm, Normal S1 S2, Edema Gastrointestinal: Normal bowel sounds - Studies Laboratory Data (last 24 hrs) 08/19/18 05:29: WBC 10.3, Hgb 8.1 L, Hct 23.2 L, Plt Count 201 D 08/19/18 05:29: Sodium 137, Potassium 3.3 L, BUN 21 H, Creatinine 2.70 H D, Glucose 171 H, Phosphorus 3.6 Medications List Reviewed: Yes Assessment And Plan - Current Problems (Diagnosis) (1) End stage renal disease Onset Date: 08/15/18 Current Visit: Yes Status: Acute (2) Metabolic acidosis Onset Date: 08/15/18 Current Visit: Yes Status: Acute (3) History of diabetes mellitus, type II Current Visit: Yes Status: Chronic (4) History of hypertension Current Visit: Yes Status: Chronic - Plan 48 yo with PMH of DM for 15 yrs no retinopathy or neuropathy , HTN and HLD Pt admitted for persistent cough of 1wk duration Pt had normal RFT in 2015 , in November Cr was 1.[address] [facility] Er cr 4.6, no nsaid or contrast Pt transferred to initiate HD Assessment and plan ESRD Likely due to DM Nephrotic range protienuria HIV and RPR -ve US: no hydro Will cont HD F/U ROBB, ANCA, C3,C4 and hep panel will try to arrange for Home HD Lt perm cath malfunction, now HD via lT femoral cath scheduled for perm cath pablo cement on Monday HD MWF Anemia IFEOMA IV iron and folate DM: BS control HTN cont meds better controlled now will cont current Meds
--- NOTE | 2018-08-19 13:42 | P.PN ---
Subjective Date of Service: 08/19/18 Chief Complaint: Acute renal failure Patient seen and examined at bedside with RN. Chart reviewed. Case discussed we Nephrology and general surgery. Status post HD tunnel catheter placement. HD catheter appear to be clogged however. Patient now with Temp tunnel catheter in the right femoral area. Plan for revision of her HD tunnel catheter on Monday Review of Systems 10-point ROS is otherwise unremarkable Physical Examination - Vital Signs Temperature: 98.3 F Blood Pressure: 125/60 Pulse: 73 Respirations: 18 Pulse Ox (%): 96 - Physical Exam General: Alert, In no apparent distress HEENT: Atraumatic, PERRLA, EOMI Neck: Supple, JVD not distended Respiratory: Clear to auscultation bilaterally, Normal air movement Cardiovascular: Regular rate/rhythm, Normal S1 S2 Gastrointestinal: Normal bowel sounds, No tenderness Musculoskeletal: No tenderness Integumentary: No rashes Neurological: Normal speech, Normal tone, Normal affect Lymphatics: No axilla or inguinal lymphadenopathy - Studies Laboratory Data (last 24 hrs) 08/19/18 05:29: WBC 10.3, Hgb 8.1 L, Hct 23.2 L, Plt Count 201 D 08/19/18 05:29: Sodium 137, Potassium 3.3 L, BUN 21 H, Creatinine 2.70 H D, Glucose 171 H, Phosphorus 3.6 Medications List Reviewed: Yes Assessment And Plan - Current Problems (Diagnosis) (1) End stage renal disease Onset Date: 08/15/18 Current Visit: Yes Status: Acute Plan: Acute renal failure on chronic kidney disease -status post HD catheter placement, however patient received 1 round of dialysis and then on day 2 her hemodialysis catheter was obstructed cath flow was used without any success. -patient now with a temporary catheter -will receive hemodialysis with temporary dialysis catheter -nephrology consulted appreciated recommendations -patient scheduled for revision over permanent catheter on Monday (2) History of diabetes mellitus, type II Current Visit: Yes Status: Chronic Plan: Currently on insulin sliding scale will continue to monitor closely (3) History of hypertension Current Visit: Yes Status: Chronic Plan: Continue with home medication at this time - Plan Currently pending clinical improvement at this time. Status post temporary hemodialysis catheter. Patient also needs to get her outpatient hemodialysis set up before discharge home. Once patient is able to be dialyzed and her permanent catheter is working again patient can then be discharged home once her HD has been set up. Discharge Plan: Home Plan to discharge in: 72 Hours - Code Status/Comfort Care Code Status Assessed: Yes Critical Care: No
[2018-08-19] MEDS: CALCITROL 0.25 MCG CAP PO SCH (21:55)
[2018-08-20] MEDS: METOPROLOL TAR 25 MG TAB PO SCH ×2 (05:06→17:24)
[2018-08-20 05:40] LABS: Albumin 1.3 g/dL (3.4-5.0); Magnesium 1.9 mg/dL (1.8-2.4); Phosphorus 3.8 mg/dL (2.5-4.9); Potassium 3.9 mmol/L (3.5-5.1)
[2018-08-20] MEDS ORDERED: KCL 20 MEQ/100 mL IVPB 20 MEQ/100 ML BAG IV SCH (06:00)
--- NOTE | 2018-08-20 07:38 | EKG ---
Test Date: 2018-08-19 Test Time: 08:09:02 Rope Twisting Machine Operator: BRANDON MEASUREMENT RESULTS: Intervals: Rate: 74 AL: 142 QRSD: 64 QT: 412 QTc: 457 [place]: P: 66 AL: 142 QRS: 59 T: 121 INTERPRETIVE STATEMENTS: Normal sinus rhythm Non specific T abnormality Abnormal ECG Compared to ECG 08/17/2018 14:20:49 no significant change from previous ECG Electronically Signed On 08-20-18 07:38:00 SURVEY RESEARCH PROFESSOR by Barry Olmedo
[2018-08-20] MEDS ORDERED: REGADENOSON 0.4 MG/5 ML SYR IV ONE (09:00)
[2018-08-20] MEDS: SOD FERRIC GLUC COMPLX/SUCROSE 125 MG in NA CHLORIDE 0.9% 100 ML IV SCH (09:37)
[2018-08-20] MEDS: LISINOPRIL 20 MG TAB PO SCH (09:37)
[2018-08-20] MEDS: FOLIC ACID 1 MG TABLET PO SCH (09:37)
[2018-08-20] MEDS: FUROSEMIDE 40 MG/4 ML VIAL IV SCH ×2 (09:38→21:34)
[2018-08-20] MEDS: HEPARIN 5000 UNIT/ML 1 ML VIAL SQ SCH ×2 (09:40→21:35)
--- NOTE | 2018-08-20 14:28 | RAD REPORT ---
EXAM DESCRIPTION: NM - Rest Stress Cardiac Imaging - 08/20/2018 2:22 pm CLINICAL HISTORY: Chest pain COMPARISON: None. TECHNIQUE: The patient was administered approximately 10 mCi of Tc 99m Sestamibi prior to resting SP ECT imaging of the heart. The patient was then administered approximately 30 mCi of Tc 99m Sestamibi following exercise or pharmacologic stress. Multiplanar SPECT images were reviewed. FINDINGS: The end diastolic volume is 68 ml, the end systolic volume is 32 ml, and the ejection frac tion is 53 %. Physiologic distribution of the radiopharmaceutical through the myocardium is noted. No stress induce d ischemic defect is seen to suggest stress induced ischemia. No fixed defect is seen to suggest hibe rnating myocardium or scarred myocardium. IMPRESSION: No stress induced ischemia or other suspicious findings.
--- NOTE | 2018-08-20 14:33 | TREADPHA ---
DX: CHEST PAIN, HYPERTENSION, END STAGE RENAL DISEASE Date of Study: 08/20/2018 Ht: 5 1 Wt: 116 lb 4.8 oz Consulting Physician: DAVID MEDICATIONS: TYLENOL, NORCO, ALBUMIN, ROCALTOL, PROCRIT, FOLIC ACID, HEPARIN, DILAUDID, PRINIVIL, LOPRESSOR, ZOFRAN HISTORY: 48 YEAR OLD FEMALE HERE FOR CHEST PAIN, HYPERTENSION AND END STAGE RENAL DISEASE. PHYSICIAL EXAMINATION: RESTING B.P.: 194/80 RESTING H.R.: 69 RESTING EKG: SINUS, NON-SPECIFIC T WAVE ABNORMALITY PROTOCOL: LEXISCAN EXERCISE TIME: 3:30 B.P. AT PEAK STRESS: 111/75 IMPRESSION: LEXISCAN STRESS TEST PERFORMED. CARDIOLITE INJECTED PER PROTOCOL. NO ARRHYTHMIAS NOTED. COMPLAINTS OF LEFT ARM DULL PAIN. THE PAIN IS AN EIGHT OUT OF TEN ON PAIN SCALE THAT REDUCED TO A FIVE. PATIENT STATES THAT SHE HAS CONSTANT PAIN TO LEFT ARM AT SAME LEVEL. SEE NUCLEAR MEDICINE REPORT. NON-DIAGNOSTIC ELECTROCARDIOGRAM WITH LEXISCAN STRESS.
--- NOTE | 2018-08-20 14:55 | ECHO ---
HEIGHT: 5 ft 1 in WEIGHT: 116 lb 4.8 oz DATE OF STUDY: 08/20/[address]: Julio Cesar La DO 2-DIMENSIONAL: YES M.MODE: YES DOPPLER: YES COLOR FLOW: YES TDS: PORTABLE: DEFINITY: BUBBLE STUDY: DIAGNOSIS: CHEST PAIN CARDIAC HISTORY: CATHERIZATION: NO SURGERY: NO PROSTHETIC VALVE: NO PACEMAKER: NO MEASUREMENTS (cm) DIASTOLIC (NORMALS) SYSTOLIC (NORMALS) IVSd 0.9 (0.6-1.2) LA Diam 2.9 (1.9-4.0) LVEF 57% LVIDd 3.8 (3.5-5.7) LVIDs 2.7 (2.0-3.5) %FS 30% LVPWd 1.2 (0.6-1.2) Ao Diam 2.4 (2.0-3.7) 2 DIMENSIONAL ASSESSMENT: RIGHT ATRIUM: NORMAL LEFT ATRIUM: NORMAL RIGHT VENTRICLE: NORMAL LEFT VENTRICLE: NORMAL TRICUSPID VALVE: NORMAL MITRAL VALVE: NORMAL PULMONIC VALVE: NORMAL AORTIC VALVE: NORMAL PERICARDIAL EFFUSION: NONE AORTIC ROOT: NORMAL LEFT VENTRICULAR WALL MOTION: NORMAL DOPPLER/COLOR FLOW: NORMAL COMMENTS: NORMAL TWO DIMENSIONAL ECHOCARDIOGRAM WITH DOPPLER. TECHNOLOGIST: MAE MICHELE
--- NOTE | 2018-08-20 18:35 | P.PN ---
Subjective Date of Service: 08/20/18 Primary Care Provider: Dr. iDckson([facility]); Nephrology-Dr. Howard Chief Complaint: Acute renal failure Subjective: Improving Physical Examination - Vital Signs Temperature: 98.5 F Blood Pressure: 167/75 Pulse: 76 Respirations: 20 Pulse Ox (%): 97 - Physical Exam General: Alert, In no apparent distress, Oriented x3, Cooperative HEENT: Atraumatic Neck: Supple Respiratory: Clear to auscultation bilaterally, Normal air movement Cardiovascular: Normal pulses, Regular rate/rhythm Gastrointestinal: Normal bowel sounds, Soft and benign, Non-distended, No tenderness, No masses, No rebound, No guarding Musculoskeletal: No erythema, No tenderness, No warmth Integumentary: No tenderness/swelling, No erythema, No warmth, No cyanosis Neurological: Normal speech, Normal strength at 5/5 x4 extr, Normal tone, Normal affect - Studies Laboratory Data (last 24 hrs) 08/20/18 04:43: Sodium 137, Potassium 3.9, BUN 28 H, Creatinine 3.70 H D, Glucose 214 H, Phosphorus 3.8, Magnesium 1.9 Microbiology Data (last 24 hrs): 08/18/18 01:38 Catheterized Urine [place] Count - Final <10,000 CFU/ML. 08/18/18 01:38 Catheterized Urine - Final Medications List Reviewed: Yes Assessment & Plan Discharge Plan: Home Plan to discharge in: 48 Hours Physician Review Additional Text: Impression: End-stage renal disease requiring dialysis Hypertension Diabetes mellitus type 2 Anemia of chronic disease Chest pain Plan: End-stage renal disease requiring dialysis: Patient NPO. Patient evaluated for chest pain. Cardiac stress test unremarkable. Echocardiogram shows normal ejection fraction. Patient may proceed with dialysis catheter replacement. Once placed will need to set up chronic dialysis. Arrangements for social security specialist to help with chronic dialysis as an outpatient will be arranged. Will discuss further with nephrology. Hypertension: Continue with medication. Will monitor and adjust appropriately Diabetes mellitus type 2: Will continue sliding scale. Will monitor closely. Anemia of chronic disease: Patient getting IV iron. Will monitor closely. Time Spent Managing Pts Care (In Minutes): 55
[2018-08-21] MEDS: HEPARIN 5000 UNIT/ML 1 ML VIAL SQ SCH ×2 (00:57→21:16)
--- NOTE | 2018-08-21 03:55 | PN ---
Date of Progress Note: 08/20/2018 Chief Complaint: Acute on chronic kidney injury, nonoliguric. Subjective: The patient is advancing to end-stage renal disease. Currently, she is dialysis depende nt and underwent dialysis. The patient is to have stress test tomorrow and she is scheduled for cath eter placement. The patient has fluid overload. She was started on dialysis to control volemia. Review of Systems: Denies fever, chills. Physical Examination: Lungs: Clear to auscultation bilaterally. Heart: S1, S2. Abdomen: Soft, benign. Extremities: Edema improved. Imaging: The patient had a cardiac echo, which showed ejection fraction 57%, normal echocardiogram w ith Doppler. Lab Work: Today, sodium 137, potassium 3.9, chloride 102, CO2 28, BUN 28, creatinine 3.7, calcium is 6.8. Albumin is 1.3. C3 94, C4 15. ROBB pending. ANCA pending. Immunofixation electrophoresis, n o abnormal BA and BS present on immunofixation. No monoclonal protein detected. Hepatitis B core to mikael antibody is nonreactive. Hepatitis B surface antigen nonreactive. Impression And Plan: 1.The patient is advancing to end-stage renal disease. She has multiple medical problems. She had developed fluid overload. She is improving with volemia and is responding to dialysis. She will nee d a catheter exchange prior to discharge to outpatient dialysis. 2.Anemia in chronic kidney disease. Monitor hemoglobin level. 3.Renal osteodystrophy. Continue to monitor phosphorus level and continue renal diet. 4.Fluid overload. The patient is undergoing cardiac echo, which showed normal ejection fraction. F urther workup per Cardiology. EB/MODL Voice ID: [id number] Report ID: [id number]
[2018-08-21 05:26] LABS: Absolute Lymphocytes (CBC) 1.6 K/uL (0.7-4.9); Absolute Monocytes 0.6 K/uL (0.1-1.3); Absolute Neutrophil 6.3 K/uL (1.8-8.0); Basophils % 0.6 % (0-1.3); Eosinophils % 1.6 % (0-4.4); Hematocrit 23.4 % (36.0-45.0); Lymphocytes % 18.5 % (15.3-44.8); MCH 28.3 pg (27.0-35.0); MCV 82.4 fL (80-100); MPV 9.6 fL (7.6-11.3); Monocytes % 7.2 % (3.3-12.3); RBC Red Blood Cell Count 2.84 M/uL (3.86-4.86)
[2018-08-21 05:43] LABS: Magnesium 1.9 mg/dL (1.8-2.4); Potassium 3.9 mmol/L (3.5-5.1)
[2018-08-21] MEDS: METOPROLOL TAR 25 MG TAB PO SCH ×2 (05:58→16:40)
[2018-08-21] MEDS: FUROSEMIDE 40 MG/4 ML VIAL IV SCH ×2 (08:59→21:16)
[2018-08-21] MEDS: SOD FERRIC GLUC COMPLX/SUCROSE 125 MG in NA CHLORIDE 0.9% 100 ML IV SCH (08:59)
[2018-08-21] MEDS: LISINOPRIL 20 MG TAB PO SCH ×2 (08:59→21:17)
[2018-08-21] MEDS: FOLIC ACID 1 MG TABLET PO SCH (09:00)
[2018-08-21] MEDS ORDERED: NA CHLORIDE 0.9% 500 ML ONE (11:02)
[2018-08-21] MEDS ORDERED: MIDAZOLAM HCL 2 MG/2 ML INJ ONE (11:12)
[2018-08-21] MEDS ORDERED: FENTANYL CITR 100 MCG/2 ML ONE (11:12)
[2018-08-21] MEDS ORDERED: PROPOFOL 200 MG/20 ML VIAL IV ONE (11:12)
[2018-08-21] MEDS ORDERED: LIDOCAINE 2% MPF 5 ML VIAL ONE (11:13)
[2018-08-21] MEDS ORDERED: BUPIVACA 0.5%/EPI 0.0005%/PF 30 ML VIAL ONE (11:24)
[2018-08-21] MEDS ORDERED: HEPARIN 5000 UNIT/ML 1 ML VIAL ONE (11:24)
[2018-08-21] MEDS ORDERED: NA CHLORIDE 0.9% 100 ML IV ONE (11:25)
[2018-08-21] MEDS ORDERED: EPHEDRINE SULF 50 MG/10 ML SYR ONE (11:55)
--- NOTE | 2018-08-21 12:37 | P.OP ---
Preoperative diagnosis: Need for Hemodialysis Postoperative diagnosis: Need for Hemodialysis Primary procedure: Placement of RIGHT Femoral temporary hemodialysis catheter Secondary procedure: ultrasound used, flouroscopy, microintroducer used Anesthesia: GETA + Local Estimated blood loss: <5cc Specimen: Prior Placed catheter removed Findings: Dark, Non red non-pulsatile blood returned, Right IJ was diminutive Complications: None Implants: 23 cm straignt tunnelled hemodialysis catheter Transferred to: Recovery Room Condition: Good
[2018-08-21] MEDS: HYDROMORPHONE HCL 1 MG/ML INJ IV PRN (15:30)
[2018-08-21] MEDS: ONDANSETRON 4 MG/2 ML VIAL IV PRN (16:40)
--- NOTE | 2018-08-21 16:55 | P.PN ---
Subjective Date of Service: 08/21/18 Primary Care Provider: Dr. Dickson([facility]); Nephrology-Dr. Howard Chief Complaint: Acute renal failure Subjective: Improving Physical Examination - Vital Signs Temperature: 98.1 F Blood Pressure: 205/91 Pulse: 75 Respirations: 16 Pulse Ox (%): 98 - Physical Exam General: Alert, In no apparent distress, Oriented x3, Cooperative HEENT: Atraumatic Neck: Supple Respiratory: Clear to auscultation bilaterally, Normal air movement Cardiovascular: Normal pulses, Regular rate/rhythm Gastrointestinal: Normal bowel sounds, Soft and benign, Non-distended, No tenderness, No masses, No rebound, No guarding Musculoskeletal: No contractures, No erythema, No tenderness, No warmth Integumentary: No tenderness/swelling, No erythema, No warmth, No cyanosis Neurological: Normal speech, Normal strength at 5/5 x4 extr, Normal tone, Normal affect - Studies Laboratory Data (last 24 hrs) 08/21/18 04:18: WBC 8.8 D, Hgb 8.0 L, Hct 23.4 L, Plt Count 204 08/21/18 04:18: Sodium 137, Potassium 3.9, BUN 32 H, Creatinine 4.10 H, Glucose 169 H, Magnesium 1.9 Microbiology Data (last 24 hrs): 08/18/18 01:38 Catheterized Urine [place] Count - Final <10,000 CFU/ML. 08/18/18 01:38 Catheterized Urine - Final Medications List Reviewed: Yes Assessment & Plan Discharge Plan: Home Plan to discharge in: 24 Hours Physician Review Additional Text: Impression: End-stage renal disease requiring dialysis Hypertension Diabetes mellitus type 2 Anemia of chronic disease Chest pain Plan: End-stage renal disease requiring dialysis: Patient NPO for replacement of dialysis catheter today. Cardiac stress test unremarkable yesterday. Patient awaiting arrangements for outpatient chronic dialysis. Hopefully this will occur tomorrow if successful with dialysis catheter placement today. Will discuss case further with nephrology. Hypertension: Blood pressure elevated. Will adjust medication for better control. Will monitor and adjust appropriately Diabetes mellitus type 2: Will continue sliding scale. Will monitor closely. Anemia of chronic disease: Patient getting IV iron. Will monitor closely. Time Spent Managing Pts Care (In Minutes): 55
[2018-08-21] MEDS: CALCITROL 0.25 MCG CAP PO SCH (21:16)
[2018-08-21 22:08] LABS: Albumin, (SPE) 1.8 g/dL (3.8-4.8); Alpha-1-Globulins 0.4 g/dL (0.2-0.3); Alpha-2-Globulins 0.8 g/dL (0.5-0.9); Gamma Globulins 0.9 g/dL (0.8-1.7); INTERPRETATION REPORT
--- NOTE | 2018-08-22 00:19 | OP ---
Date of Procedure: 08/21/2018 Surgeon: León Bridges MD, Preoperative Diagnosis: Need for hemodialysis. Postoperative Diagnosis: Need for hemodialysis. Procedure Performed: Placement of right subclavian hemodialysis catheter. Secondary ultrasound was used, fluoroscopy used, and the micro introducer set was used. Anesthesia: General endotracheal plus local with 1% lidocaine used. Estimated Blood Loss: Less than 5 cc. Specimen: Prior placed tunnel hemodialysis catheter was removed from the left internal jugular vein. Findings: 1.Dark red nonpulsatile blood was returned. 2.The right IJ was found to be somewhat diminutive in size and difficult to cannulate with micro int roducer set. As such, subclavian was chosen for a better access point. Complications: None. Implants: A 23 cm straight tunneled hemodialysis catheter. Disposition: Transferred to recovery room in good condition. Procedure In Detail: After informed was obtained, the patient was brought to the operating room, pre pped and draped in the usual sterile fashion. After adequate anesthesia was achieved, the patient wa s positioned in steep Trendelenburg position. Using ultrasound, I interrogated the area of the right neck. I visualized the right carotid artery and the right internal jugular vein. Even placing the patient into steep Trendelenburg, still only allowed for a somewhat smaller internal jugular vein to be visualized at this point, and as such, cannulation was somewhat difficult. Dark red, nonpulsatile blood was returned. Using fluoroscopy, the micro wire which traversed across the subclavian, but we did not make a curve towards the SVC on multiple attempts and repositioning; therefore, I abandoned this portion of the procedure and decided to do a subclavian at this point. I then anesthetized the area under the right clavicle and cannulated the right subclavian vein on the first attempt with a mi construction site crossing guard introducer. I then advanced the micro wire using fluoroscopy and verified position into the SVC. It was verified at this time and ectopy was appreciated on the diesel engine tester, and verified by Anesthe missy. I then made a small jonn and placed the micro introducer into the over wire technique using Ewelina gini technique and removed the micro wire. Micro wire out was called and the inner sheath was dahlia royce. I then advanced the standard wire into the subclavian vein and verified its position also in th e SVC using fluoroscopy. After this was verified, I then found a space on the chest wall approximate ly 4.5 cm away from the insertion site, anesthetized the area in the entire tract using 1% lidocaine. I made an incision in the area and using a tunneling device, I then passed the catheter and cuff in through the subcutaneous position and out through the insertion site on the chest wall in the subcla vian position. After this was performed, I then used sequential dilatation, over wire Seldinger tech nique in the subclavian vein until the introducer sheath was placed. I then verified position of the introducer sheath using fluoroscopy once again to be curving towards the SVC, which was verified. T he wire was removed at this point. The inner cannula was removed and the catheter was then advanced into the introducer sheath without evidence of complication. I then verified position after the intr oducer sheath was removed, that the catheter was in good position in the SVC confluence, which was ve rified at this time. I then flushed the port and I pulled back quite easily and flushed with saline quite easily. I then packed them with super flush 2 cc per port and locked these ports at this point . I then irrigated the chest wall completely until clear and closed the insertion site with a single interrupted 2-0 nylon suture as well as securing the catheter to the chest wall with the above-state d 2-0 nylon suture to the chest and a sterile dressing was placed over top. I left the patient in st eep Trendelenburg at this point and removed the left internal jugular vein previously placed tunnel h emodialysis catheter. While the patient was in steep Trendelenburg, I placed pressure at the entry s ite as well as on the chest wall and then put the patient in the head up position. I irrigated the s kin incisions copiously and closed the catheter exit point on the chest wall with the above-stated 2- 0 nylon suture without evidence of complication. Pressure was held on this area for 5 minutes by the clock. While the patient was in head up position, a sterile dressing was placed over top. The reginald ent tolerated the procedure well without evidence of complication, transferred to the PACU in good co ndition. All counts were correct at the end of the case. In addition, a stat chest x-ray will be pe rformed to verify position in the PACU recovery room. LARA/MORENA Voice ID: [id number] Report ID: [id number]
--- NOTE | 2018-08-22 01:20 | PN ---
Date of Progress Note: 08/21/2018 Subjective: The patient is schedule for PermCath exchange today as PermCath was not working. Physical Examination: Vital Signs: Blood pressure of 163/78, pulse of 73. Chest: Clear to auscultation. Heart: S1, S2 regular. Abdomen: Soft, nontender. Extremities: No edema. Laboratory Data: H and H 8/23.4. Sodium 137, potassium 3.9, bicarb 28, BUN 32, creatinine 4.1, calc ium 7.7. Current Medications: The patient on its include: 1.Calcitriol. 2.IV iron. 3.Hydrocodone. 4.Lasix. 5.Metoprolol. Assessment And Plan: 1.End-stage renal disease. We will resume dialysis when catheter exchange. 2.Hypertension, controlled, not optimal. We will follow up blood pressure post dialysis. 3.Anemia of chronic kidney disease. Continue to monitor on Epogen. 4.Malfunction PermCath. Plan for exchange today. 5.Secondary hyperparathyroidism. Continue calcitriol. The patient is going to be cleared from the renal standpoint after placement of a new catheter. DEVORAH Voice ID: [id number] Report ID: [id number]
[2018-08-22] MEDS: ONDANSETRON 4 MG/2 ML VIAL IV PRN ×2 (01:42→15:26)
[2018-08-22 04:47] LABS: Absolute Lymphocytes (CBC) 0.8 K/uL (0.7-4.9); Absolute Monocytes 0.5 K/uL (0.1-1.3); Absolute Neutrophil 10.5 K/uL (1.8-8.0); Basophils % 0.3 % (0-1.3); Eosinophils % 0.6 % (0-4.4); Hematocrit 23.3 % (36.0-45.0); Lymphocytes % 6.8 % (15.3-44.8); MCH 28.4 pg (27.0-35.0); MCV 82.7 fL (80-100); MPV 9.6 fL (7.6-11.3); Monocytes % 4.2 % (3.3-12.3); RBC Red Blood Cell Count 2.82 M/uL (3.86-4.86)
[2018-08-22 05:04] LABS: Magnesium 1.7 mg/dL (1.8-2.4); Potassium 3.4 mmol/L (3.5-5.1)
[2018-08-22 05:09] LABS: Blood Morphology Comment NOT SEEN (NOT SEEN); Platelet Estimate ADEQ; Urine White Blood Cell Casts OK
--- NOTE | 2018-08-22 07:41 | RAD REPORT ---
EXAM DESCRIPTION: RAD - Fluoroscopy <1 Hour - 08/21/2018 11:03 pm CLINICAL HISTORY: Device placement central venous catheter placement FINDINGS: A central venous catheter was placed into the superior vena cava and right atrium. Three f luoroscopic spot images are submitted. Fluoroscopy time 21 seconds The examination was performed by Dr. Bridges
[2018-08-22] MEDS: METOPROLOL TAR 25 MG TAB PO SCH ×2 (08:43→17:23)
[2018-08-22] MEDS: FOLIC ACID 1 MG TABLET PO SCH (08:43)
[2018-08-22] MEDS: FUROSEMIDE 40 MG/4 ML VIAL IV SCH ×2 (08:44→22:34)
[2018-08-22] MEDS: SOD FERRIC GLUC COMPLX/SUCROSE 125 MG in NA CHLORIDE 0.9% 100 ML IV SCH (08:44)
[2018-08-22] MEDS: LISINOPRIL 20 MG TAB PO SCH ×2 (08:44→22:33)
[2018-08-22] MEDS: HYDROCODONE/APAP 7.5/325 MG TAB PO PRN ×2 (08:47→22:31)
--- NOTE | 2018-08-22 08:54 | RAD REPORT ---
EXAM DESCRIPTION: RAD - Chest Single View - 08/21/2018 9:38 pm CLINICAL HISTORY: Hemodialysis catheter placement. No written report could be generated at the time of the study due to technical malfunction. A verbal report was telephoned to the patient's nurse near the time of the examination. COMPARISON: August 17 TECHNIQUE: AP portable chest image was obtained 1308 hours . FINDINGS: Right subclavian dialysis catheter is in place. Long arm of the catheter is in the right a trium with a short arm in the distal SVC. Heart and vasculature are normal. No measurable pleural eff usion and no pneumothorax. No acute bony abnormality seen. No acute aortic findings suspected. IMPRESSION: Right dialysis catheter positioning as detailed. No pneumothorax or emergent finding.
[2018-08-22] MEDS ORDERED: MAGNESIUM SULFATE 1 gm IVPB 1 GM/100 ML BAG IV ONE (09:00)
[2018-08-22] MEDS ORDERED: POTASSIUM CL SA 10 MEQ TAB PO ONE (09:00)
[2018-08-22] MEDS ORDERED: LIDOCAINE 1% MPF 5 ML VIAL ONE (09:34)
[2018-08-22] MEDS ORDERED: HEPARIN 5000 UNIT/ML 1 ML VIAL ONE (09:35)
--- NOTE | 2018-08-22 09:58 | P.PN ---
Subjective Date of Service: 08/22/18 Primary Care Provider: Dr. Dickson([facility]); Nephrology-Dr. Howard Chief Complaint: Acute renal failure patient had some difficulty with catheter pressure flows. c/o chest pain, SOB, chills at times. Physical Examination - Vital Signs Temperature: 98.3 F Blood Pressure: 148/60 Pulse: 81 Respirations: 22 Pulse Ox (%): 99 - Physical Exam General: Alert, In no apparent distress, Cooperative Respiratory: Normal air movement Cardiovascular: Regular rate/rhythm, Other (Catheter in place, ) - Studies Laboratory Data (last 24 hrs) 08/22/18 04:00: Sodium 138, Potassium 3.4 L, BUN 16, Creatinine 2.20 H D, Glucose 135 H, Magnesium 1.7 L 08/22/18 04:00: WBC 12.0 H D, Hgb 8.0 L, Hct 23.3 L, Plt Count 202 Medications List Reviewed: Yes Assessment And Plan - Plan - I have pulled catheter back about 3 cm at bedside, resecured under sterile conditions - STAT Chest x ray for catheter position - catheter flows easily and repacked with heparin - DC groin catheter if subclavian catheter functional Physician Review Additional Text: Impression: End-stage renal disease requiring dialysis Hypertension Diabetes mellitus type 2 Anemia of chronic disease Chest pain Plan: End-stage renal disease requiring dialysis: Patient NPO for replacement of dialysis catheter today. Cardiac stress test unremarkable yesterday. Patient awaiting arrangements for outpatient chronic dialysis. Hopefully this will occur tomorrow if successful with dialysis catheter placement today. Will discuss case further with nephrology. Hypertension: Blood pressure elevated. Will adjust medication for better control. Will monitor and adjust appropriately Diabetes mellitus type 2: Will continue sliding scale. Will monitor closely. Anemia of chronic disease: Patient getting IV iron. Will monitor closely.
--- NOTE | 2018-08-22 10:52 | RAD REPORT ---
EXAM DESCRIPTION: RAD - Chest Single View - 08/22/2018 10:30 am CLINICAL HISTORY: Hemodialysis catheter replacement or repositioning COMPARISON: August 21 TECHNIQUE: AP portable chest image was obtained 1122 hours . FINDINGS: Right subclavian hemodialysis catheter has been repositioned. Short arm is in the mid SVC. Long arm is in the distal SVC. Heart, vasculature and lung markings are stable. No pneumothorax. IMPRESSION: Right-sided hemodialysis catheter has been repositioned. Both arms of the catheter are w ithin the SVC. No pneumothorax.
[2018-08-22] MEDS: HEPARIN 5000 UNIT/ML 1 ML VIAL SQ SCH ×2 (11:23→22:35)
--- NOTE | 2018-08-22 17:00 | P.PN ---
Subjective Date of Service: 08/22/18 Primary Care Provider: Dr. Dickson([facility]); Nephrology-Dr. Howard Chief Complaint: Acute renal failure Subjective: Doing well Physical Examination - Vital Signs Temperature: 98.9 F Blood Pressure: 161/71 Pulse: 75 Respirations: 20 Pulse Ox (%): 100 - Physical Exam General: Alert, In no apparent distress, Oriented x3, Cooperative HEENT: Atraumatic, Normocephalic, Mucous membr. moist/pink Neck: Supple Respiratory: Clear to auscultation bilaterally, Normal air movement Cardiovascular: Normal pulses, Regular rate/rhythm Gastrointestinal: Normal bowel sounds, Soft and benign, Non-distended, No tenderness, No masses, No rebound, No guarding Musculoskeletal: No erythema, No tenderness, No warmth Integumentary: No tenderness/swelling, No erythema, No warmth, No cyanosis Neurological: Normal speech, Normal strength at 5/5 x4 extr, Normal tone, Normal affect - Studies Laboratory Data (last 24 hrs) 08/22/18 15:00: Potassium Cancelled 08/22/18 04:00: Sodium 138, Potassium 3.4 L, BUN 16, Creatinine 2.20 H D, Glucose 135 H, Magnesium 1.7 L 08/22/18 04:00: WBC 12.0 H D, Hgb 8.0 L, Hct 23.3 L, Plt Count 202 Medications List Reviewed: Yes Assessment & Plan Discharge Plan: Home Plan to discharge in: 24 Hours Physician Review Additional Text: Impression: End-stage renal disease requiring dialysis Hypertension Diabetes mellitus type 2 Anemia of chronic disease Chest pain Dialysis catheter placement with occlusion status post replacement Plan: End-stage renal disease requiring dialysis: Case discussed at length with nephrology and surgery. Apparently there was some difficulty placing catheter yesterday. Catheter was readjusted by surgery today. Will check to see if the catheter is working properly. Patient to have short dialysis today to see if it is working appropriately. If so patient can possibly be discharged. Await recommendations from nephrology. Hypertension: Blood pressure elevated. Will continue to adjust medication for better control. Will monitor and adjust appropriately. This should improve with dialysis. Diabetes mellitus type 2: Will continue sliding scale. Will monitor closely. Anemia of chronic disease: Patient getting IV iron. Will monitor closely. Dialysis catheter placement with occlusion status post replacement: Case discussed at length with surgery. Surgery will reassess catheter today. The plan is to adjust catheter. If appropriate will proceed with dialysis. If tolerates diet then will proceed. If not working appropriately the patient may need to be transferred for replacement of catheter. Time Spent Managing Pts Care (In Minutes): 55
[2018-08-22 19:28] LABS: P-ANCA Anti-Myeloperoxidase Ab <1.0 AI (<1.0)
[2018-08-22] MEDS: NEPRO SHAKE 237 ML CAN PO SCH (22:32)
--- NOTE | 2018-08-23 02:38 | PN ---
Date of Progress Note: 08/22/2018 Subjective: The patient was admitted to initiate dialysis. Had a catheter placed, malfunctioned. F or that reason has been removed, placed a femoral yesterday. The patient underwent another catheter exchange, unfortunately has been a little bit longer than the expectation. For that reason today, th e patient had adjustment for the position of the catheter. The patient complaining of chest tightnes s. No nausea. No vomiting. Physical Examination: Vital Signs: Blood pressure of 117/56, pulse of 71. Chest: Clear to auscultation. Heart: S1, S2 regular. Abdomen: Soft, nontender. Extremities: No edema. Laboratory Data: WBC 12, H and H 8/23.3, platelets 202. Sodium 138, potassium 3.4, bicarb 28, BUN 1 6, creatinine 2.2, this is post dialysis. Calcium 7.2, magnesium of 1.7. Medications: Current medications the patient is on include: 1.Albumin. 2.Hydrocodone. 3.Epogen. 4.IV iron. 5.Lasix. 6.Lisinopril 20 b.i.d. 7.Metoprolol 25 b.i.d. Assessment And Plan: 1.End-stage renal disease. We will continue the patient on dialysis. We are going to test the cath eter today if the catheter is working well. The patient already set up for outpatient dialysis. The patient is going to be cleared for discharge planning. 2.Hypertension, controlled optimal. Continue current medication. 3.Anemia of chronic kidney disease with iron-deficiency anemia. Continue IV iron. Continue Epogen. 4.Pleuritic chest pain. We will follow up with the primary. DEVORAH Voice ID: [id number] Report ID: [id number]
[2018-08-23 04:08] LABS: Absolute Lymphocytes (CBC) 1.6 K/uL (0.7-4.9); Absolute Monocytes 0.6 K/uL (0.1-1.3); Absolute Neutrophil 4.6 K/uL (1.8-8.0); Basophils % 0.9 % (0-1.3); Eosinophils % 2.4 % (0-4.4); Hematocrit 22.8 % (36.0-45.0); Lymphocytes % 23.1 % (15.3-44.8); MCH 29.1 pg (27.0-35.0); MCV 83.4 fL (80-100); MPV 8.9 fL (7.6-11.3); RBC Red Blood Cell Count 2.73 M/uL (3.86-4.86)
[2018-08-23 04:31] LABS: Magnesium 2.2 mg/dL (1.8-2.4); Potassium 4.4 mmol/L (3.5-5.1)
[2018-08-23] MEDS: HYDROCODONE/APAP 7.5/325 MG TAB PO PRN ×2 (06:14→11:28)
[2018-08-23] MEDS: METOPROLOL TAR 25 MG TAB PO SCH (06:14)
[2018-08-23] MEDS: LISINOPRIL 20 MG TAB PO SCH (08:58)
[2018-08-23] MEDS: FOLIC ACID 1 MG TABLET PO SCH (08:58)
[2018-08-23] MEDS: SOD FERRIC GLUC COMPLX/SUCROSE 125 MG in NA CHLORIDE 0.9% 100 ML IV SCH (08:58)
[2018-08-23] MEDS: FUROSEMIDE 40 MG/4 ML VIAL IV SCH (08:59)
[2018-08-23] MEDS: NEPRO SHAKE 237 ML CAN PO SCH (09:00)
[2018-08-23] MEDS: HEPARIN 5000 UNIT/ML 1 ML VIAL SQ SCH (09:01)
--- NOTE | 2018-08-23 10:19 | P.PN ---
Date of Service: 08/23/18 Patient had hemodialysis successfully via tunnelled hemodialysis catheter - removed femoral catheter at bedside under sterile conditions, no complications
--- NOTE | 2018-08-23 11:28 | P.DS ---
Admission Date: 08/14/18 Discharge Date: 08/23/18 Primary Care Provider: Dr. Dickson([facility]); Nephrology-Dr. Howard Disposition: ROUTINE DISCHARGE Discharge Condition: GOOD Reason for Admission: Acute renal failure Consultations: Surgery-Dr. Bridges Nephrology-Dr. Howard Procedures: Cardiac stress test: COMPARISON: None. TECHNIQUE: The patient was administered approximately 10 mCi of Tc 99m Sestamibi prior to resting SPECT imaging of the heart. The patient was then administered approximately 30 mCi of Tc 99m Sestamibi following exercise or pharmacologic stress. Multiplanar SPECT images were reviewed. FINDINGS: The end diastolic volume is 68 ml, the end systolic volume is 32 ml, and the ejection fraction is 53 %. Physiologic distribution of the radiopharmaceutical through the myocardium is noted. No stress induced ischemic defect is seen to suggest stress induced ischemia. No fixed defect is seen to suggest hibernating myocardium or scarred myocardium. IMPRESSION: No stress induced ischemia or other suspicious findings. ECHO: EF-57% LEFT VENTRICULAR WALL MOTION: NORMAL DOPPLER/COLOR FLOW: NORMAL COMMENTS: NORMAL TWO DIMENSIONAL ECHOCARDIOGRAM WITH DOPPLER. Surgery: Date of Procedure: 08/14/2018 Surgeon: León Bridges MD [employer]: Vicky Durand. Preoperative Diagnosis: End-stage renal disease. Postoperative Diagnosis: End-stage renal disease. Procedure Performed: Placement of a left internal jugular tunneled hemodialysis catheter using ultrasound and fluoroscopic guidance. Anesthesia: General endotracheal plus local with 0.25% Marcaine. Estimated Blood Loss: Less than 10 cc. Specimen: None. Findings: 1. Somewhat difficult anatomy and difficulty passing the microwire without significant turning of the wire into the subclavian vein as well as to the contralateral carotid, but ultimately I was able to traverse this and pass the wire into the normal anatomic position. 2. Dark red non-pulsatile blood after cannulation was confirmed on ultrasound guidance. Complications: None. Disposition: Transferred to recovery room in good condition. Implants: A 24 cm tunneled hemodialysis catheter. Surgery: Date of Procedure: 08/17/2018 Surgeon: León Bridges MD Preoperative Diagnoses: Need for hemodialysis access, dysfunction of previously placed hemodialysis catheter. Postoperative Diagnoses: Need for hemodialysis access, dysfunction of previously placed hemodialysis catheter. Procedure Performed: Placement of a right femoral temporary hemodialysis catheter. Ultrasound guidance and microintroducer set was used. Anesthesia: Lidocaine 1% was used for local anesthesia. Estimated Blood Loss: Less than 5 mL. Specimen: None. Findings: Dark red nonpulsatile blood was returned. Complications: None. Implant: Tunneled 20-cm 12-A[place]ij[place] hemodialysis catheter. Surgery: Date of Procedure: 08/21/2018 Surgeon: León Bridges MD Preoperative Diagnosis: Need for hemodialysis. Postoperative Diagnosis: Need for hemodialysis. Procedure Performed: Placement of right subclavian hemodialysis catheter. Secondary ultrasound was used, fluoroscopy used, and the micro introducer set was used. Anesthesia: General endotracheal plus local with 1% lidocaine used. Estimated Blood Loss: Less than 5 cc. Specimen: Prior placed tunnel hemodialysis catheter was removed from the left internal jugular vein. Findings: 1. Dark red nonpulsatile blood was returned. 2. The right IJ was found to be somewhat diminutive in size and difficult to cannulate with micro introducer set. As such, subclavian was chosen for a better access point. Complications: None. Implants: A 23 cm straight tunneled hemodialysis catheter. Medical Problem List: Acute on chronic kidney failure resulting in End-stage renal disease requiring chronic dialysis Hypertension Diabetes mellitus type 2 , diet controlled Anemia of chronic disease with noted iron deficiency Chest pain, resolved, cardiac stress test unremarkable Dialysis catheter placement of the left internal jugular complicated with occlusion status post replacement of dialysis catheter placement to the right subclavian Brief History of Present Illness: 48-year-old female with history of diabetes, hypertension, and chronic renal disease. Patient was transferred from [facility] (formerly [facility]3] due to lack of resources for dialysis initiation and placement. Patient had worsening acute on chronic renal disease. Patient would require dialysis catheter placement and initiation of dialysis. Hospital Course: Patient transferred from [facility] (formerly [facility]3] due to acute on chronic kidney failure with history of diabetes type 2, anemia of chronic disease and hypertension. The patient was transferred from [facility] (formerly [facility]3] due to initiation of dialysis with limited resources at their facility. During the course of her stay patient found to have worsening renal disease. Patient now with end-stage renal disease requiring chronic dialysis. Patient was evaluated by nephrology. Nephrology recommended to initiate dialysis. This would require placement of dialysis catheter. Patient initially had dialysis catheter placement of the left internal jugular. This was complicated with occlusion. The patient subsequently had a temporary dialysis catheter placed to the right femoral. The patient then had a right subclavian dialysis catheter placed. This proved to work well. At discharge she will continue with dialysis as an outpatient. Arrangements with the help of psychiatric social worker supervisor have been set. Femoral catheter removed prior to discharge. Patient will continue with right subclavian dialysis catheter care. Patient did receive dialysis during the course of her stay. Patient will continue with dialysis again tomorrow as an outpatient. She will continue with dialysis every will Monday, Wednesdays and Fridays. Patient will follow up with nephrology in 1 week to follow up this hospitalization. At discharge she will be given a limited supply of pain medication-tramadol 50 mg 1 pill 3 times a day as needed for pain. The patient will also continue with Calcitrol 0.5 mcg every 48 hr and Nepro 1 can twice daily. Patient has diabetes mellitus type 2. This is diet controlled. She will continue with her current diet. This remained stable during her stay. Recommendation is to maintain blood sugars less 140 fasting and less than 200 after meals. Further adjustment can be done by her PCP. Patient has hypertension. This remained stable during the course of her stay. She will continue with her medications-metoprolol 25 mg 1 pill twice daily and lisinopril 20 mg 1 pill twice daily. Recommendation is to maintain blood pressures less 150/80. Further adjustment can be done by her PCP or nephrology. Patient has anemia of chronic disease likely related to her renal failure. Iron deficiency noted Patient did receive IV iron. At discharge she will continue with iron 325 mg 1 pill twice daily. This can be monitored closely by nephrology. Recommendation to recheck lab-CBC in 1 week to monitor progress. Recommendation is for the patient to follow up with GI as an outpatient to further assess as well. Patient may require EGD and colonoscopy in the future to further evaluate. During the course of her stay patient did have chest pain. Patient was evaluated by cardiology. Patient had a cardiac stress test and echocardiogram both unremarkable. No further cardiac intervention is required. At discharge she will continue with aspirin 81 mg daily. Vital Signs/Physical Exam: Temp Pulse Resp BP Pulse Ox 98.9 F 80 20 135/64 99 08/23/18 04:00 08/23/18 08:59 08/23/18 04:00 08/23/18 08:59 08/23/18 04:00 General: Alert, In no apparent distress, Oriented x3, Cooperative HEENT: Atraumatic, Normocephalic, PERRLA, Mucous membr. moist/pink Neck: Supple, No Thyromegaly Respiratory: Clear to auscultation bilaterally, Normal air movement Cardiovascular: Normal pulses, Regular rate/rhythm Gastrointestinal: Normal bowel sounds, Soft and benign, Non-distended, No tenderness, No masses, No rebound, No guarding Musculoskeletal: No erythema, No tenderness, No warmth Integumentary: No tenderness/swelling, No erythema, No warmth, No cyanosis Neurological: Normal speech, Normal strength at 5/5 x4 extr, Normal tone, Normal affect Laboratory Data at Discharge: WBC 7.1 K/uL (4.3-10.9) D 08/23/18 03:53 Hgb 7.9 g/dL (12.0-15.0) L* 08/23/18 03:53 Hct 22.8 % (36.0-45.0) L 08/23/18 03:53 Plt Count 171 K/uL (152-406) 08/23/18 03:53 PT 12.8 SECONDS (9.5-12.5) H 08/15/18 05:40 INR 1.08 08/15/18 05:40 APTT 33.2 SECONDS (24.3-36.9) 08/15/18 05:40 Sodium 135 mmol/L (136-145) L 08/23/18 03:53 Potassium 4.4 mmol/L (3.5-5.1) 08/23/18 03:53 BUN 11 mg/dL (7-18) 08/23/18 03:53 Creatinine 2.30 mg/dL (0.55-1.3) H 08/23/18 03:53 Glucose 141 mg/dL (74-106) H 08/23/18 03:53 Phosphorus 3.8 mg/dL (2.5-4.9) 08/20/18 04:43 Magnesium 2.2 mg/dL (1.8-2.4) D 08/23/18 03:53 Total Bilirubin 0.2 mg/dL (0.2-1.0) 08/15/18 05:40 AST 10 U/L (15-37) L 08/15/18 05:40 ALT 12 U/L (12-78) 08/15/18 05:40 Alkaline Phosphatase 95 U/L (45-117) 08/15/18 05:40 Troponin I 0.02 ng/mL (0.0-0.045) 08/17/18 19:57 Home Medications: Aspirin [Aspirin EC 81 MG] 81 mg PO DAILY #90 tablet. 08/23/18 Calcitrol [Rocaltrol*] 0.5 mcg PO Q48H #30 cap 08/23/18 Ferrous Sulfate [Iron] 325 mg PO BID #60 tablet 08/23/18 Lisinopril [Prinivil*] 20 mg PO BID #60 tab 08/23/18 Metoprolol Tartrate [Lopressor*] 25 mg PO BID 6AM 6PM #60 tab 08/23/18 Nepro Shake [Nepro*] 237 ml PO BID #60 can 08/23/18 Tramadol HCl [Ultram] 50 mg PO TID PRN #20 tablet 08/23/18 New Medications: Aspirin [Aspirin EC 81 MG] 81 mg PO DAILY #90 tablet. Calcitrol [Rocaltrol*] 0.5 mcg PO Q48H #30 cap Ferrous Sulfate [Iron] 325 mg PO BID #60 tablet Lisinopril [Prinivil*] 20 mg PO BID #60 tab Metoprolol Tartrate [Lopressor*] 25 mg PO BID 6AM 6PM #60 tab Nepro Shake [Nepro*] 237 ml PO BID #60 can Tramadol HCl [Ultram] 50 mg PO TID PRN #20 tablet PRN Reason: Pain Patient Discharge Instructions: 1. Patient will need to follow up her PCP in 1 week to follow up this hospitalization. 2. Patient transferred from [facility] ([facility]3] due to acute on chronic kidney failure with history of diabetes type 2 , anemia of chronic disease and hypertension. The patient was transferred from [facility] ([facility]3] due to initiation of dialysis with limited resources at their facility. During the course of her stay patient found to have worsening renal disease. Patient now with end-stage renal disease requiring chronic dialysis. Patient was evaluated by nephrology. Nephrology recommended to initiate dialysis. This would require placement of dialysis catheter. Patient initially had dialysis catheter placement of the left internal jugular. This was complicated with occlusion. The patient subsequently had a temporary dialysis catheter placed to the right femoral. The patient then had a right subclavian dialysis catheter placed. This proved to work well. At discharge she will continue with dialysis as an outpatient. Arrangements with the help of psychiatric social worker supervisor have been set. Femoral catheter removed prior to discharge. Patient will continue with right subclavian dialysis catheter care. Patient did receive dialysis during the course of her stay. Patient will continue with dialysis again tomorrow as an outpatient. She will continue with dialysis every will Monday, Wednesdays and Fridays. Patient will follow up with nephrology in 1 week to follow up this hospitalization. At discharge she will be given a limited supply of pain medication-tramadol 50 mg 1 pill 3 times a day as needed for pain. The patient will also continue with Calcitrol 0.5 mcg every 48 hr and Nepro 1 can twice daily. 3. Patient has diabetes mellitus type 2. This is diet controlled. She will continue with her current diet. This remained stable during her stay. Recommendation is to maintain blood sugars less 140 fasting and less than 200 after meals. Further adjustment can be done by her PCP. 4. Patient has hypertension. This remained stable during the course of her stay. She will continue with her medications-metoprolol 25 mg 1 pill twice daily and lisinopril 20 mg 1 pill twice daily. Recommendation is to maintain blood pressures less 150/80. Further adjustment can be done by her PCP or nephrology. 5. Patient has anemia of chronic disease likely related to her renal failure. Iron deficiency noted Patient did receive IV iron. At discharge she will continue with iron 325 mg 1 pill twice daily. This can be monitored closely by nephrology. Recommendation to recheck lab-CBC in 1 week to monitor progress. Recommendation is for the patient to follow up with GI as an outpatient to further assess as well. Patient may require EGD and colonoscopy in the future to further evaluate. 6. During the course of her stay patient did have chest pain. Patient was evaluated by cardiology. Patient had a cardiac stress test and echocardiogram both unremarkable. No further cardiac intervention is required. At discharge she will continue with aspirin 81 mg daily. 7. Patient may return to work after 2 weeks. Diet: Renal Activity: Ad morales Time spent managing pt's care (in minutes): 55
--- NOTE | 2018-08-23 13:01 | P.PN ---
Subjective Date of Service: 08/23/18 Primary Care Provider: Dr. Dickson([facility]); Nephrology-Dr. Howard Chief Complaint: Acute renal failure Pt with DM and progressive CKD, TRANSFERRED FORM [facility] as she required to initiate HD on Monday complained of mild chest pain that resolved spontaneously cathter replaced and working cleared for discharge from nephrology point of view Can resume HD tomorrow at her HD [facility] HD unit Physical Examination - Vital Signs Temperature: 99.1 F Blood Pressure: 109/61 Pulse: 74 Respirations: 18 Pulse Ox (%): 99 - Physical Exam General: Oriented x3 HEENT: Atraumatic Neck: Supple Respiratory: Clear to auscultation bilaterally Cardiovascular: No edema, Regular rate/rhythm, Normal S1 S2 Gastrointestinal: Normal bowel sounds - Studies Laboratory Data (last 24 hrs) 08/23/18 03:53: Sodium 135 L, Potassium 4.4, BUN 11, Creatinine 2.30 H, Glucose 141 H, Magnesium 2.2 D 08/23/18 03:53: WBC 7.1 D, Hgb 7.9 L*, Hct 22.8 L, Plt Count 171 08/22/18 17:22: Potassium 4.5 Medications List Reviewed: Yes Assessment And Plan - Current Problems (Diagnosis) (1) End stage renal disease Onset Date: 08/15/18 Current Visit: Yes Status: Acute (2) Metabolic acidosis Onset Date: 08/15/18 Current Visit: Yes Status: Acute (3) History of diabetes mellitus, type II Current Visit: Yes Status: Chronic (4) History of hypertension Current Visit: Yes Status: Chronic - Plan 48 yo with PMH of DM for 15 yrs no retinopathy or neuropathy , HTN and HLD Pt admitted for persistent cough of 1wk duration Pt had normal RFT in 2015 , in November Cr was 1.9 In [facility] Er cr 4.6, no nsaid or contrast Pt transferred to initiate HD Assessment and plan ESRD Likely due to DM Nephrotic range protienuria HIV and RPR -ve US: no hydro Will cont HD ROBB, ANCA, C3,C4 and hep panel : -ve IEF -ve HD MWF Anemia IFEOMA IV iron and folate DM: BS control HTN cont meds better controlled now will cont current Meds Physician Review Additional Text: Impression: End-stage renal disease requiring dialysis Hypertension Diabetes mellitus type 2 Anemia of chronic disease Chest pain Dialysis catheter placement with occlusion status post replacement Plan: End-stage renal disease requiring dialysis: Case discussed at length with nephrology and surgery. Apparently there was some difficulty placing catheter yesterday. Catheter was readjusted by surgery today. Will check to see if the catheter is working properly. Patient to have short dialysis today to see if it is working appropriately. If so patient can possibly be discharged. Await recommendations from nephrology. Hypertension: Blood pressure elevated. Will continue to adjust medication for better control. Will monitor and adjust appropriately. This should improve with dialysis. Diabetes mellitus type 2: Will continue sliding scale. Will monitor closely. Anemia of chronic disease: Patient getting IV iron. Will monitor closely. Dialysis catheter placement with occlusion status post replacement: Case discussed at length with surgery. Surgery will reassess catheter today. The plan is to adjust catheter. If appropriate will proceed with dialysis. If tolerates diet then will proceed. If not working appropriately the patient may need to be transferred for replacement of catheter.
== END 2018-08-23 14:30 | disposition home or self-care (01) | DRG 674 ==
LOC: 4TH 23:33
PROVIDERS: ADMIT Hospitalist; ATTEND Family Medicine
PROC: 0JH60XZ Insertion of Tunneled Vascular Access Device into Chest Subcutaneous Tissue and Fascia, Open Approach (ICD-10-PCS; principal; 2018-08-14)
PROC: 05HN33Z Insertion of Infusion Device into Left Internal Jugular Vein, Percutaneous Approach (ICD-10-PCS; 2018-08-14)
PROC: 5A1D70Z Performance of Urinary Filtration, Intermittent, Less than 6 Hours Per Day (ICD-10-PCS; 2018-08-15)
PROC: 5A1D70Z Performance of Urinary Filtration, Intermittent, Less than 6 Hours Per Day (ICD-10-PCS; 2018-08-16)
PROC: 0JHL0XZ Insertion of Tunneled Vascular Access Device into Right Upper Leg Subcutaneous Tissue and Fascia, Open Approach (ICD-10-PCS; 2018-08-17)
PROC: 06HM33Z Insertion of Infusion Device into Right Femoral Vein, Percutaneous Approach (ICD-10-PCS; 2018-08-17)
PROC: 5A1D70Z Performance of Urinary Filtration, Intermittent, Less than 6 Hours Per Day (ICD-10-PCS; 2018-08-18)
PROC: 0JH60XZ Insertion of Tunneled Vascular Access Device into Chest Subcutaneous Tissue and Fascia, Open Approach (ICD-10-PCS; 2018-08-21)
PROC: 05H533Z Insertion of Infusion Device into Right Subclavian Vein, Percutaneous Approach (ICD-10-PCS; 2018-08-21)
PROC: 0JPTXXZ Removal of Tunneled Vascular Access Device from Trunk Subcutaneous Tissue and Fascia, External Approach (ICD-10-PCS; 2018-08-21)
PROC: 5A1D70Z Performance of Urinary Filtration, Intermittent, Less than 6 Hours Per Day (ICD-10-PCS; 2018-08-21)
PROC: 5A1D70Z Performance of Urinary Filtration, Intermittent, Less than 6 Hours Per Day (ICD-10-PCS; 2018-08-22)
PROC: 06PYX3Z Removal of Infusion Device from Lower Vein, External Approach (ICD-10-PCS; 2018-08-23)
DX: N17.9 Acute kidney failure, unspecified (principal); I12.0 Hypertensive chronic kidney disease with stage 5 chronic kidney disease or end stage renal disease; E87.2 Acidosis; T82.41XA Breakdown (mechanical) of vascular dialysis catheter, initial encounter; E11.9 Type 2 diabetes mellitus without complications; N18.6 End stage renal disease; N25.81 Secondary hyperparathyroidism of renal origin; I10 Essential (primary) hypertension; E78.5 Hyperlipidemia, unspecified; E11.22 Type 2 diabetes mellitus with diabetic chronic kidney disease; E83.51 Hypocalcemia; E11.40 Type 2 diabetes mellitus with diabetic neuropathy, unspecified; D63.1 Anemia in chronic kidney disease; Z99.2 Dependence on renal dialysis; N25.0 Renal osteodystrophy; Z23 Encounter for immunization
CPT/HCPCS: 36415; 71045; 76000; 78452; 80048; 80053; 80069; 81001; 81003; 81015; 82607; 82728; 82746; 82962; 83540; 83605; 83735; 83970; 84100; 84132; 84165; 84466; 84484; 85025; 85044; 85610; 85730; 86021; 86038; 86160; 86317; 86334; 86704; 86706; 87086; 87088; 87340; 90670; 90935; 93005; 93017; 93306; 97163; A9500; C1752; G0008; G0009; J0610; J0690; J1170; J1644; J1940; J2250; J2405; J2704; J2785; J2916; J2997; J3010; J3475; Q2035; Q4081